=== PATIENT | female | born 1940 | race Caucasian/White ===

== ENCOUNTER → 2020-08-10 10:54 | Outpatient (BNVA) | payer MEDICARE, SELFPAY | PROVIDERS: PCP Internal Medicine; Visit Provider Surgery | DX: H60.10 Cellulitis of external ear, unspecified ear (principal) | CPT/HCPCS: 99202 ==

== ENCOUNTER → 2020-08-17 10:22 | Outpatient (BNVA) | payer MEDICARE, SELFPAY | PROVIDERS: PCP Internal Medicine; Visit Provider Surgery | DX: H61.91 Disorder of right external ear, unspecified (principal) | CPT/HCPCS: 99212 ==

== ENCOUNTER 2020-11-10 07:16 | Outpatient (REF) | payer MEDICARE, SELFPAY ==
[2020-11-10 11:42] LABS: Eosinophils Absolute Auto 0.2 X10*3/uL (0.0-0.4); Eosinophils Percent Auto 3.6 % (0-4); Hemoglobin 13.9 g/dl (12.0-16.0); Imm Gran Abs Auto 0.01 X10*3/uL (0.00-0.03); Imm Gran Pct Auto 0.2 % (0.0-0.4); MANUAL DIFF FLAG SCAN; PLT CLUMP 1; SCAN SMEAR FLAG 1
[2020-11-10 11:44] LABS: Basophils Percent Auto 0.9 % (0-2); Hematocrit 43.9 % (37-47); Lymphocytes Absolute Auto 1.1 X10*3/uL (1.2-4.9); Lymphocytes Percent Auto 22.9 % (20-40); Mean Corpuscular HGB Conc 31.7 g/dl (31.0-35.0); Mean Corpuscular Hemoglobin 30.6 pg (27.0-33.0); Mean Corpuscular Volume 96.7 fL (80-98); Mean Platelet Volume 12.5 fL (9.4-12.3); Monocytes Absolute Auto 0.5 X10*3/uL (0.1-1.2); Monocytes Percent Auto 10.7 % (2-11); Neutrophils Absolute Auto 2.9 X10*3/uL (2.0-8.3); Neutrophils Percent Auto 61.7 % (45-73); Platelet Count 224 X10*3/uL (160-400); Red Blood Count 4.54 X10*6/uL (4.20-5.50); Red Cell Distribution Width 13.6 % (11.0-16.0); White Blood Count 4.7 X10*3/uL (4.8-10.8)
[2020-11-10 12:09] LABS: Cholesterol 156 mg/dL; Glucose Fasting 94 mg/dL (60-99); HDL Cholesterol 66 mg/dL; LDL Cholesterol Calculated 78 mg/dl; Triglycerides 61 mg/dL
[2020-11-10 12:31] LABS: Thyroid Stimulating Hormone 5.46 uIU/mL (0.32-4.0); Vitamin D 25-OH Total 31.9 ng/mL (>30)
== END 2020-11-10 07:17 | disposition home or self-care (01) ==
LOC: HO.HMGCLDS 07:16
PROVIDERS: PCP Internal Medicine; Visit Provider Internal Medicine
DX: I48.0 Paroxysmal atrial fibrillation (principal); I10 Essential (primary) hypertension; E78.00 Pure hypercholesterolemia, unspecified; E03.9 Hypothyroidism, unspecified; F32.9 Major depressive disorder, single episode, unspecified; G47.33 Obstructive sleep apnea (adult) (pediatric); E66.09 Other obesity due to excess calories
CPT/HCPCS: 36415; 80061; 82306; 82947; 84443; 85025

== ENCOUNTER 2021-03-04 10:17 | Outpatient (REF) | payer MEDICARE, SELFPAY ==
[2021-03-04 11:57] LABS: MANUAL DIFF FLAG NO
[2021-03-04 12:07] LABS: Basophils Percent Auto 0.2 % (0-2); Eosinophils Absolute Auto 0.2 X10*3/uL (0.0-0.4); Eosinophils Percent Auto 1.7 % (0-4); Hematocrit 44.5 % (37.0-47.0); Hemoglobin 13.9 g/dl (12.0-16.0); Imm Gran Abs Auto 0.03 X10*3/uL (0.00-0.03); Imm Gran Pct Auto 0.3 % (0.0-0.4); Lymphocytes Absolute Auto 1.1 X10*3/uL (1.2-4.9); Lymphocytes Percent Auto 11.2 % (20-40); Mean Corpuscular HGB Conc 31.2 g/dl (31.0-35.0); Mean Corpuscular Hemoglobin 30.6 pg (27.0-33.0); Mean Platelet Volume 12.3 fL (9.4-12.3); Monocytes Absolute Auto 0.9 X10*3/uL (0.1-1.2); Monocytes Percent Auto 9.6 % (2-11); Neutrophils Absolute Auto 7.4 x10*3/uL (2.0-8.3); Platelet Count 209 X10*3/uL (160-400); Red Blood Count 4.54 X10*6/uL (4.20-5.50); Red Cell Distribution Width 13.6 % (11.0-16.0); White Blood Count 9.6 X10*3/uL (4.8-10.8)
[2021-03-04 12:19] LABS: Alanine Aminotransferase 18 U/L (0-31); Albumin Level 3.8 g/dL (3.5-5.0); Alkaline Phosphatase 80 U/L (39-117); Anion Gap 13 (12-20); Aspartate Amino Transferase 19 U/L (5-31); Bilirubin Total 0.6 mg/dL (0.0-1.0); Blood Urea Nitrogen 18 mg/dL (9-16); Calcium 8.8 mg/dL (8.4-10.2); Carbon Dioxide 28 mmol/L (22-29); Chloride 105 mmol/L (96-108); Estimated Glomerular Filt Rate 58; Glucose Random 84 mg/dL (60-115); Potassium 4.5 mmol/L (3.3-5.1); Sodium 141 mmol/L (135-145); Total Protein 6.3 g/dL (6.5-8.0)
[2021-03-04 12:44] LABS: Free T4 (Free Thyroxine) 1.36 ng/dL (0.71-1.85)
[2021-03-04 13:14] LABS: Thyroid Stimulating Hormone 2.24 uIU/mL (0.32-4.0)
== END 2021-03-04 10:18 | disposition home or self-care (01) ==
LOC: HO.HMGCLDS 10:17
PROVIDERS: PCP Internal Medicine; Visit Provider Internal Medicine
DX: I48.0 Paroxysmal atrial fibrillation (principal); E66.09 Other obesity due to excess calories; E03.9 Hypothyroidism, unspecified; F32.9 Major depressive disorder, single episode, unspecified; E78.00 Pure hypercholesterolemia, unspecified; I10 Essential (primary) hypertension; Z98.890 Other specified postprocedural states
CPT/HCPCS: 36415; 80053; 84439; 84443; 85025

== ENCOUNTER 2021-11-13 07:41 | Outpatient (REF) | payer MEDICARE, SELFPAY ==
[2021-11-13 11:09] LABS: MANUAL DIFF FLAG NO
[2021-11-13 11:28] LABS: Basophils Absolute Auto 0.1 X10*3/uL (0.0-0.2); Eosinophils Absolute Auto 0.1 X10*3/uL (0.0-0.4); Eosinophils Percent Auto 2.2 % (0-4); Hematocrit 45.3 % (37.0-47.0); Hemoglobin 14.3 g/dl (12.0-16.0); Imm Gran Abs Auto 0.01 X10*3/uL (0.00-0.03); Imm Gran Pct Auto 0.2 % (0.0-0.4); Lymphocytes Absolute Auto 1.1 X10*3/uL (1.2-4.9); Lymphocytes Percent Auto 22.2 % (20-40); Mean Corpuscular HGB Conc 31.6 g/dl (31.0-35.0); Mean Corpuscular Hemoglobin 30.2 pg (27.0-33.0); Mean Corpuscular Volume 95.8 fL (80.0-98.0); Mean Platelet Volume 12.5 fL (9.4-12.3); Monocytes Absolute Auto 0.5 X10*3/uL (0.1-1.2); Monocytes Percent Auto 9.8 % (2-11); Neutrophils Absolute Auto 3.2 x10*3/uL (2.0-8.3); Neutrophils Percent Auto 64.6 % (45-73); Platelet Count 238 X10*3/uL (160-400); Red Blood Count 4.73 X10*6/uL (4.20-5.50); White Blood Count 4.9 X10*3/uL (4.8-10.8)
[2021-11-13 11:46] LABS: Alanine Aminotransferase 16 U/L (0-31); Alkaline Phosphatase 82 U/L (39-117); Anion Gap 14 (12-20); Aspartate Amino Transferase 21 U/L (5-31); Bilirubin Total 0.7 mg/dL (0.0-1.0); Blood Urea Nitrogen 17 mg/dL (9-16); Carbon Dioxide 29 mmol/L (22-29); Chloride 105 mmol/L (96-108); Cholesterol 145 mg/dL; Estimated Glomerular Filt Rate 58; Glucose Fasting 86 mg/dL (60-99); HDL Cholesterol 55 mg/dL; LDL Cholesterol Calculated 75 mg/dl; Potassium 4.3 mmol/L (3.3-5.1); Sodium 144 mmol/L (135-145); Total Protein 6.6 g/dL (6.5-8.0); Triglycerides 77 mg/dL
[2021-11-13 12:09] LABS: Thyroid Stimulating Hormone 5.62 uIU/mL (0.32-4.0); Vitamin D 25-OH Total 38.8 ng/mL (>30)
== END 2021-11-13 07:42 | disposition home or self-care (01) ==
LOC: HO.HMGCLDS 07:41
PROVIDERS: PCP Internal Medicine; Visit Provider Internal Medicine
DX: I48.0 Paroxysmal atrial fibrillation (principal); E78.00 Pure hypercholesterolemia, unspecified; E03.9 Hypothyroidism, unspecified; F32.9 Major depressive disorder, single episode, unspecified; G47.33 Obstructive sleep apnea (adult) (pediatric); E66.09 Other obesity due to excess calories
CPT/HCPCS: 36415; 80053; 80061; 82306; 84443; 85025

== ENCOUNTER 2022-10-23 08:37 | Outpatient (REF) | payer MEDICARE, SELFPAY ==
[2022-10-23 11:40] LABS: MANUAL DIFF FLAG NO
[2022-10-23 11:42] LABS: Basophils Absolute Auto 0.1 X10*3/uL (0.0-0.2); Eosinophils Absolute Auto 0.1 X10*3/uL (0.0-0.4); Eosinophils Percent Auto 2.4 % (0-4); Hematocrit 50.9 % (37.0-47.0); Hemoglobin 16.2 g/dl (12.0-16.0); Imm Gran Abs Auto 0.02 X10*3/uL (0.00-0.03); Imm Gran Pct Auto 0.4 % (0.0-0.4); Lymphocytes Absolute Auto 1.3 X10*3/uL (1.2-4.9); Lymphocytes Percent Auto 25.2 % (20-40); Mean Corpuscular HGB Conc 31.8 g/dl (31.0-35.0); Mean Corpuscular Hemoglobin 30.2 pg (27.0-33.0); Mean Corpuscular Volume 94.8 fL (80.0-98.0); Mean Platelet Volume 12.1 fL (9.4-12.3); Monocytes Absolute Auto 0.5 X10*3/uL (0.1-1.2); Monocytes Percent Auto 10.7 % (2-11); Neutrophils Percent Auto 60.3 % (45-73); Platelet Count 261 X10*3/uL (160-400); Red Blood Count 5.37 X10*6/uL (4.20-5.50); Red Cell Distribution Width 13.4 % (11.0-16.0)
[2022-10-23 12:17] LABS: Alanine Aminotransferase 13 U/L (0-31); Alkaline Phosphatase 78 U/L (39-117); Anion Gap 13 (12-20); Aspartate Amino Transferase 23 U/L (5-31); Bilirubin Total 0.9 mg/dL (0.0-1.0); Blood Urea Nitrogen 16 mg/dL (9-16); Calcium 9.5 mg/dL (8.4-10.2); Carbon Dioxide 26 mmol/L (22-29); Chloride 107 mmol/L (96-108); Cholesterol 141 mg/dL (<200); Estimated Glomerular Filt Rate > 60; Glucose Fasting 94 mg/dL (60-99); HDL Cholesterol 52 mg/dL (>40); LDL Cholesterol Calculated 72 mg/dL (<100); Potassium 4.3 mmol/L (3.3-5.1); Sodium 142 mmol/L (135-145); Triglycerides 89 mg/dL (<150)
[2022-10-23 12:36] LABS: Thyroid Stimulating Hormone 2.91 uIU/mL (0.32-4.0)
== END 2022-10-23 08:38 | disposition home or self-care (01) ==
LOC: HO.HMGCLDS 08:37
PROVIDERS: PCP Internal Medicine; Visit Provider Internal Medicine
DX: E03.9 Hypothyroidism, unspecified (principal); E78.00 Pure hypercholesterolemia, unspecified; I10 Essential (primary) hypertension; I48.0 Paroxysmal atrial fibrillation; E66.09 Other obesity due to excess calories; G47.33 Obstructive sleep apnea (adult) (pediatric)
CPT/HCPCS: 36415; 80053; 80061; 84443; 85025

== ENCOUNTER 2023-02-06 11:00 | Outpatient (REF) | payer MEDICARE, SELFPAY ==
[2023-02-06 15:31] LABS: Adenovirus F 40/41 Not Detected (Not Detect.); Astrovirus Not Detected (Not Detect.); Campylobacter Not Detected (Not Detect.); Cryptosporidium Not Detected (Not Detect.); Cyclospora cayetanensis Not Detected (Not Detect.); E. coli EAEC Not Detected (Not Detect.); E. coli EPEC Not Detected (Not Detect.); E. coli ETEC Not Detected (Not Detect.); E. coli STEC Not Detected (Not Detect.); Entamoeba histolytica Not Detected (Not Detect.); Giardia lamblia Not Detected (Not Detect.); Norovirus GI/GII Not Detected (Not Detect.); Plesiomonas shigelloides Not Detected (Not Detect.); Rotavirus A Not Detected (Not Detect.); Salmonella Not Detected (Not Detect.); Sapovirus Not Detected (Not Detect.); Shigella sp./EIEC Not Detected (Not Detect.); Vibrio Not Detected (Not Detect.); Vibrio Cholerae Not Detected (Not Detect.); Yersinia enterocolitica Not Detected (Not Detect.)
[2023-02-06 15:38] LABS: CDiff Gene PCR NEGATIVE (Negative)
== END 2023-02-06 11:01 | disposition home or self-care (01) ==
LOC: HO.HMGCLNP 11:00
PROVIDERS: PCP Internal Medicine; Visit Provider Internal Medicine
DX: R19.7 Diarrhea, unspecified (principal)
CPT/HCPCS: 87493; 87507

== ENCOUNTER 2023-05-30 07:47 | Outpatient (REF) | payer MEDICARE, SELFPAY ==
[2023-05-30 11:24] LABS: Basophils Percent Auto 0.8 % (0-2); Eosinophils Absolute Auto 0.2 X10*3/uL (0.0-0.4); Hematocrit 47.9 % (37.0-47.0); Hemoglobin 15.2 g/dl (12.0-16.0); Imm Gran Abs Auto 0.01 X10*3/uL (0.00-0.03); Imm Gran Pct Auto 0.2 % (0.0-0.4); Lymphocytes Absolute Auto 1.3 X10*3/uL (1.2-4.9); Lymphocytes Percent Auto 25.5 % (20-40); MANUAL DIFF FLAG NO; Mean Corpuscular HGB Conc 31.7 g/dl (31.0-35.0); Mean Corpuscular Hemoglobin 30.1 pg (27.0-33.0); Mean Corpuscular Volume 94.9 fL (80.0-98.0); Mean Platelet Volume 11.8 fL (9.4-12.3); Monocytes Absolute Auto 0.6 X10*3/uL (0.1-1.2); Monocytes Percent Auto 11.7 % (2-11); Neutrophils Absolute Auto 2.9 x10*3/uL (2.0-8.3); Neutrophils Percent Auto 57.8 % (45-73); Platelet Count 230 X10*3/uL (160-400); Red Blood Count 5.05 X10*6/uL (4.20-5.50); Red Cell Distribution Width 13.8 % (11.0-16.0); White Blood Count 5.1 X10*3/uL (4.8-10.8)
[2023-05-30 11:41] LABS: Alanine Aminotransferase 12 U/L (0-31); Albumin Level 3.8 g/dL (3.5-5.0); Alkaline Phosphatase 83 U/L (39-117); Anion Gap 13 (12-20); Aspartate Amino Transferase 20 U/L (5-31); Bilirubin Total 0.7 mg/dL (0.0-1.0); Blood Urea Nitrogen 19 mg/dL (9-16); Calcium 9.1 mg/dL (8.4-10.2); Carbon Dioxide 29 mmol/L (22-29); Chloride 104 mmol/L (96-108); Cholesterol 144 mg/dL (<200); Estimated Glomerular Filt Rate > 60; Glucose Fasting 98 mg/dL (60-99); HDL Cholesterol 50 mg/dL (>40); LDL Cholesterol Calculated 77 mg/dL (<100); Potassium 4.2 mmol/L (3.3-5.1); Sodium 142 mmol/L (135-145); Total Protein 6.6 g/dL (6.5-8.0); Triglycerides 86 mg/dL (<150)
[2023-05-30 11:58] LABS: Thyroid Stimulating Hormone 1.34 uIU/mL (0.32-4.0)
== END 2023-05-30 07:48 | disposition home or self-care (01) ==
LOC: HO.HMGCLDS 07:47
PROVIDERS: PCP Internal Medicine; Visit Provider Internal Medicine
DX: E78.00 Pure hypercholesterolemia, unspecified (principal); E03.9 Hypothyroidism, unspecified; F32.9 Major depressive disorder, single episode, unspecified; E66.09 Other obesity due to excess calories; I48.0 Paroxysmal atrial fibrillation
CPT/HCPCS: 36415; 80053; 80061; 84443; 85025

== ENCOUNTER 2024-01-26 15:38 | Emergency (ER) | payer MEDICARE, SELFPAY ==
--- NOTE | ~2024-01-26 | CT_ITS ---
EXAMINATION: CT HEAD WITHOUT CONTRAST CT CERVICAL SPINE WITHOUT CONTRAST CT LUMBAR SPINE WITHOUT CONTRAST CLINICAL INFORMATION: Trauma. COMPARISON: None available. TECHNIQUE: Contiguous axial imaging was performed from the skull base to vertex without intravenous administration of contrast. Contiguous axial imaging was performed from the upper chest through the skull base without intravenous administration of contrast. Multidetector helical imaging of the thoracic and lumbar spine was obtained without intravenous contrast. Coronal and sagittal reformats were obtained at the acquisition workstation. This CT examination was performed using dose optimization techniques as appropriate, variously including the following: *Automated exposure control. *Adjustment of mA and/or kV according to patient size (this includes techniques or standardized protocols for targeted exams where dose is matched to indication/reason for exam; i.e. extremities or head). *Use of iterative reconstruction technique. DLP: 1511 mGy-cm FINDINGS: Head: There is no evidence of acute intracranial hemorrhage or edematous territorial infarction. Lane-white matter differentiation is preserved. Scattered and partially confluent hypoattenuation in the periventricular and deep white matter are consistent with moderate microangiopathy. Proportional prominence of the ventricles and sulcal spaces without evidence of obstructive hydrocephalus. No abnormal mass effect or midline shift. No extra-axial fluid collections. Calcific atherosclerotic disease of the intracranial internal carotid and vertebral arteries. No hyperdense vessel sign. No acute soft tissue or osseous abnormalities. Mild mucosal thickening of the paranasal sinuses. The mastoid air cells and middle ear cavities are clear. Moderate left and mild right degenerative arthropathy of the temporomandibular joints. Bilateral lens extractions. Cervical Spine: The atlantooccipital and atlantoaxial articulations remain well aligned. Moderate degenerative arthropathy of the atlantodental articulation. Straightening of the normal cervical lordosis. Mild degenerative stepwise anterolistheses of C2-C5. Otherwise, there is anatomic alignment of the vertebral bodies and posterior elements. No evidence of acute fracture or subluxation. The vertebral body heights are maintained. Advanced degenerative disc disease from C4-C7. Moderate degenerative disc disease at all additional levels. Facet and uncovertebral joint arthropathy leads to osseous encroachment on the neural foramina from C2-C7. There is no prevertebral soft tissue swelling. The thyroid gland and remaining cervical soft tissues are within normal limits. The lung apices demonstrate no abnormalities. Lumbar Spine: Minimal right convex curvature of the lumbar spine. No evidence of acute fracture or traumatic subluxation. The vertebral body heights are maintained. Advanced degenerative disc disease from L2-S1. Moderate degenerative disc disease at L1-L2. No suspicious lytic or sclerotic osseous lesions. No significant abnormalities of the paraspinal musculature. Limited evaluation of the intra-abdominal structures without significant abnormalities. The abdominal aorta is of normal contour and caliber with moderate calcific atherosclerotic disease. AXIAL SPINAL LEVELS: L1-L2: Moderate diffuse disc bulge with posterior osseous ridging. There is moderate bilateral facet joint arthropathy. There is moderate bilateral neural foraminal stenosis. There appears to be stenosis of the right subarticular zone with mild to moderate spinal canal stenosis centrally. L2-L3: Moderate diffuse disc bulge with posterior osseous ridging. There is moderate to severe bilateral facet joint arthropathy. There is moderate to severe left and moderate right neural foraminal stenosis. There appears to be moderate to severe spinal canal stenosis. L3-L4: Moderate diffuse disc bulge with posterior osseous ridging. There is moderate to severe bilateral facet joint arthropathy. There is moderate bilateral neural foraminal stenosis. There appears to be moderate to severe spinal canal stenosis. L4-L5: Moderate diffuse disc bulge with posterior osseous ridging. There is severe bilateral facet joint arthropathy. There is moderate to severe bilateral neural foraminal stenosis. There appears to be moderate to severe spinal canal stenosis. L5-S1: Mild diffuse disc bulge with posterior osseous ridging. There is moderate bilateral facet joint arthropathy. There is moderate to severe right and mild left neural foraminal stenosis. There is no demonstrated spinal canal stenosis. CT/CT cervical spine wo IV con IMPRESSION: 1. No evidence of acute intracranial hemorrhage or edematous territorial infarction. Moderate underlying microangiopathy and generalized cerebral volume loss. 2. No evidence of acute fracture or traumatic subluxation of the cervical spine. Moderate to advanced multilevel degenerative spondyloarthropathy of the cervical spine as described in detail above. 3. No evidence of acute fracture or traumatic subluxation of the lumbar spine. 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 Most notably on this limited exam without intrathecal contrast, there appears to be moderate to severe spinal canal stenoses from L2-L5. Moderate to severe neural foraminal stenoses from L1-S1. Electronically signed by: Pro Nicholas DO 01/26/2024 08:44 PM SUZI COCHRAN
[2024-01-26 16:25] VITALS: BP 105/85; PULSE 78; RESP 16; TEMP 36.9; O2SAT 98; BMI 33.7
--- NOTE | 2024-01-26 16:32 | ED_ITS ---
HPI - General Adult General Chief complaint: Headache Stated complaint: Fall T-1, Flank pain sent by pcp Time Seen by Provider: 01/26/24 19:40 Source: patient, RN notes reviewed and old records reviewed Mode of arrival: ambulatory Limitations: no limitations History of Present Illness ED Provider: Thanh HPI narrative: 83-year-old female presents for evaluation of lower back pain. Patient reports that she had a nonsyncopal fall yesterday. She reports that she was carrying things down the stairs. She reports that she missed the last step of the stairs and fell onto her buttocks. She hit her head against the wall and ?dented the drywall. The patient reports that she had no symptoms initially. She started to develop lower back pain last night while she was sleeping and ?had a restless night. ? Today she called her primary doctor and was told to come to the ER for evaluation. She reports severe lower back pain that is worse when she tries to move or bend She reports that she always has urinary incontinence but has had worsening incontinence since her fall yesterday She denies any numbness, tingling or weakness to her legs Related Data Home Medications ?Medication ?Instructions ?Recorded ?Confirmed amiodarone 200 mg tablet 200 mg PO DAILY 07/31/20 08/10/20 amoxicillin 500 mg capsule 2,000 mg PO ONCE 07/31/20 08/10/20 apixaban 5 mg tablet 5 mg PO BID 07/31/20 08/10/20 atorvastatin 10 mg tablet 10 mg PO DAILY 07/31/20 08/10/20 levothyroxine 100 mcg tablet 100 mcg PO DAILY 07/31/20 08/10/20 losartan 50 mg tablet 50 mg PO DAILY 07/31/20 08/10/20 metoprolol succinate 50 mg 50 mg PO DAILY 07/31/20 08/10/20 tablet,extended release 24 hr sertraline 50 mg tablet 50 mg PO DAILY 07/31/20 08/10/20 Previous Rx's ?Medication ?Instructions ?Recorded cephalexin 500 mg capsule 500 mg PO QID 7 days #28 caps 07/31/20 mupirocin calcium 2 % topical cream 1 appl topical BID Ear infection 08/10/20 #15 grams Allergies Allergy/AdvReac Type Severity Reaction Status Date / Time aspirin [ASPIRIN] Allergy Intermediate bruising Verified 01/26/24 16:28 amoxicillin [Amoxicillin] Allergy Unknown DIARRHEA/NA Unverified 01/26/24 16:28 USES metoprolol [Toprol XL] Allergy Unknown headaches Verified 01/26/24 16:28 meloxicam [From MOBIC] AdvReac Intermediate DIARRHEA Unverified 01/26/24 16:28 Review of Systems 2 Constitutional: Constitutional: Denies body ache(s), Denies chills, Denies fever(s) and Denies headache(s) Eyes: Eyes: Denies blurry vision ENT: Denies vertigo, Denies dizziness and Denies headache(s) Cardiovascular: Cardiovascular: Denies chest pain and Denies dyspnea Respiratory: Respiratory: Denies cough and Denies dyspnea Gastrointestinal: Gastrointestinal: Denies abdominal pain, Denies nausea and Denies vomiting Musculoskeletal: Musculoskeletal: Reports back pain Integumentary/Breasts: Skin/Breast: Denies rash Neurologic: Denies vertigo, Denies dizziness and Denies headache(s) Psychiatric: Psychiatric: Denies anxiety PMFSH Past Medical History Medical History Atrial fibrillation Colitis Depression Essential hypertension GERD (gastroesophageal reflux disease) Hypercholesterolemia Hypothyroidism Irritable bowel syndrome Obstructive sleep apnea Osteoarthritis Surgical History History of cardiac pacemaker History of cataract surgery History of hysterectomy History of total knee replacement (TKR) Family History Family History Mother Breast cancer Sister Ovarian cancer Social History Social History Alcohol intake: never Patient Tobacco Use Status: Never used Tobacco Smoked in Last 30 Days: Yes Use of substances other than those prescribed or required for medical reasons: No Advance Directives: No Advance Directives Information Provided: No Do you have a plan to hurt others: No Plan Physical Exam ED Vital Signs: Vital Signs - 24 hr 01/26/24 16:25 01/26/24 19:47 Temperature 98.4 F 98.2 F Pulse Rate 78 96 Respiratory Rate 16 20 Blood Pressure 105/85 134/79 Pulse Oximetry 98 97 Oxygen Delivery Method Room Air Room Air BMI result Body Mass Index 33.7 Const General: healthy appearing, comfortable, no acute distress, alert and awake Nutritional Appearance: well nourished Orientation/consciousness: patient oriented x3 HENMT Head: Yes normocephalic and Yes atraumatic Eyes Eyelids: Yes eyelids normal Conjunctivae: conjunctivae normal Sclerae: sclerae normal Corneas: corneas normal Pupils: Equal, round and reactive pupils present EOM: EOMs intact bilaterally Neck Neck: Yes full ROM Resp Effort & Inspection: normal respiratory effort, able to speak in complete sentences and not labored GI Inspection: No distended Palpation (GI): Soft to palpation, not firm, nontender, no guarding and not rigid Back/Spine/Pelvis Other: There is no significant tenderness to thoracic, lumbar spine. No step-offs or deformities. the patient has pain elicited when flexing at the waist. Skin General skin exam: elasticity normal Neuro General: patient oriented x3 Cranial nerves: Yes Equal, round and reactive pupils present and Yes Bilaterally intact EOM present Cognition (Neuro): normal cognition Extrem Other: Moving all extremities well without any obvious deformities Course Course Course Narrative: This is a rapid medical exam performed by Ann Marie Armijo PA-C. Patient is an 83-year-old female with a history of AFib on Eliquis, hypertension, hyperlipidemia, urinary incontinence and hypothyroidism presents after fall that occurred yesterday. Patient states she was walking down a flight of stairs, she missed the last step, she subsequently landed backwards landing on her bottom, she also struck her head against the wall. There was no loss consciousness. Patient has been ambulatory since the fall. No urinary retention, bowel incontinence, weakness of lower extremities or paresthesia. Patient's primary complaint is for lumbar back pain. On exam there was no deformity, there was no midline tenderness of the spine, she has pain within the lumbar paraspinous distribution. Given she is anticoagulated and her age, I am obtaining imaging of her lumbar spine head and neck. We will screen basic labs in the event that she sustained an acute injury and requires intervention. The patient is hemodynamically stable, ambulatory at her baseline, is able to return to the waiting room pending her full assessment. Reevaluation(s) Reevaluation #1: Discussed patient's CT results with her. She has not yet given us a urinalysis. The patient would not like to wait in the emergency room any longer. She will follow up with her PCP regarding that. No evidence of acute traumatic injuries. The patient will be discharged with symptomatic care only. She does not want to be started on any medications until she speaks with her own primary doctor Time: 21:24 Medications Administered Discontinued Medications Generic Name Dose Route Start Last Admin Trade Name Gurmeet PRN Reason Stop Dose Admin Acetaminophen 650 mg 01/26/24 20:26 01/26/24 21:04 Acetaminophen 325 Mg Tablet PO 01/26/24 20:27 650 mg ONCE ONE Administration Medical Decision Making Medical Decision Making [facility] Narrative: 83-year-old female presents for evaluation of back pain after a fall. She denies any dizziness, lightheadedness prior to the fall. She had labs ordered that show no leukocytosis or anemia. Chemistries are without any significant abnormalities. She had a CT scan of the brain, cervical spine and lumbar spine ordered in triage that are still pending. The patient has no neuro deficits enema suspicion for cauda equina syndrome as she has a reassuring neurologic exam. The patient did mentioned urinary incontinence but she has a baseline Differential Diagnosis Differential Diagnoses: The differential diagnosis associated with the presentation includes Compression fracture Burst fracture Radiculopathy Sciatica Muscle strain Contusion Lab Data [facility] Lab Attestation statement: I reviewed the patient's lab results. 01/26/24 17:27 01/26/24 17:27 Labs: Lab Results 01/26/24 Range/Units 17:27 WBC 7.5 (4.8-10.8) X10*3/uL RBC 4.77 (4.20-5.50) X10*6/uL Hgb 14.8 (12.0-16.0) g/dl Hct 46.1 (37.0-47.0) % MCV 96.6 (80.0-98.0) fL MCH 31.0 (27.0-33.0) pg MCHC 32.1 (31.0-35.0) g/dl RDW 13.2 (11.0-16.0) % Plt Count 210 (160-400) X10*3/uL MPV 11.0 (9.4-12.3) fL Immature Gran % (Auto) Cancelled Neut % (Auto) Cancelled Lymph % (Auto) Cancelled Alfalfa % (Auto) Cancelled Eos % (Auto) Cancelled Baso % (Auto) Cancelled Lymph # (Auto) Cancelled Alfalfa # (Auto) Cancelled Eos # (Auto) Cancelled Baso # (Auto) Cancelled Abs Immat Gran (auto) Cancelled Absolute Neuts (auto) Cancelled Absolute Nucleated RBC 0.000 (0.0-0.012) X10*3/uL Nucleated RBC % (auto) 0.0 (0.0-0.2) /100WBC Neutrophils % (Manual) 78 H (45-73) % Band Neutrophils % 0 L (3-5) % Lymphocytes % (Manual) 12 L (20-40) % Atypical Lymphs % (Man) 1 (0-6) % Monocytes % (Manual) 5 (2-11) % Eosinophils % (Manual) 2 (0-4) % Basophils % (Manual) 2 (0-2) % Abs Neuts (Manual) 5.9 (2.0-8.3) X10*3/uL Lymphocytes # (Manual) 0.9 L (1.2-4.9) X10*3/uL Atyp Lymphs # (Manual) 0.1 x10*3/uL Monocytes # (Manual) 0.4 (0.1-1.2) X10*3/uL Eosinophils # (Manual) 0.2 (0.0-0.4) X10*3/uL Basophils # (Manual) 0.2 (0.0-0.2) X10*3/uL Toxic Vacuolation PRESENT Platelet Estimate NORMAL (NORMAL) Plt Morphology Comment NORMAL RBC Morphology NORMAL Sodium 142 (135-145) mmol/L Potassium 4.4 (3.3-5.1) mmol/L Chloride 107 (96-108) mmol/L Carbon Dioxide 28 (22-29) mmol/L Anion Gap 11 L (12-20) BUN 16 (9-16) mg/dL Creatinine 0.84 (0.5-1.4) mg/dL Estim Creat Clear Calc 50.9 Estimated GFR > 60 Random Glucose 97 (60-115) mg/dL Calcium 9.0 (8.4-10.2) mg/dL Magnesium 2.2 (1.6-2.6) mg/dL Total Bilirubin 0.8 (0.0-1.0) mg/dL AST 28 (5-31) U/L ALT 19 (0-31) U/L Alkaline Phosphatase 89 (39-117) U/L Total Protein 6.8 (6.5-8.0) g/dL Albumin 4.0 (3.5-5.0) g/dL Radiology Impression Discussion of test interpretation with radiology: I have reviewed the radiologist's reading. Radiologist Impression: FINDINGS: Head: There is no evidence of acute intracranial hemorrhage or edematous territorial infarction. Lane-white matter differentiation is preserved. Scattered and partially confluent hypoattenuation in the periventricular and deep white matter are consistent with moderate microangiopathy. Proportional prominence of the ventricles and sulcal spaces without evidence of obstructive hydrocephalus. No abnormal mass effect or midline shift. No extra-axial fluid collections. Calcific atherosclerotic disease of the intracranial internal carotid and vertebral arteries. No hyperdense vessel sign. No acute soft tissue or osseous abnormalities. Mild mucosal thickening of the paranasal sinuses. The mastoid air cells and middle ear cavities are clear. Moderate left and mild right degenerative arthropathy of the temporomandibular joints. Bilateral lens extractions. Cervical Spine: The atlantooccipital and atlantoaxial articulations remain well aligned. Moderate degenerative arthropathy of the atlantodental articulation. Straightening of the normal cervical lordosis. Mild degenerative stepwise anterolistheses of C2-C5. Otherwise, there is anatomic alignment of the vertebral bodies and posterior elements. No evidence of acute fracture or subluxation. The vertebral body heights are maintained. Advanced degenerative disc disease from C4-C7. Moderate degenerative disc disease at all additional levels. Facet and uncovertebral joint arthropathy leads to osseous encroachment on the neural foramina from C2-C7. There is no prevertebral soft tissue swelling. The thyroid gland and remaining cervical soft tissues are within normal limits. The lung apices demonstrate no abnormalities. Lumbar Spine: Minimal right convex curvature of the lumbar spine. No evidence of acute fracture or traumatic subluxation. The vertebral body heights are maintained. Advanced degenerative disc disease from L2-S1. Moderate degenerative disc disease at L1-L2. No suspicious lytic or sclerotic osseous lesions. No significant abnormalities of the paraspinal musculature. Limited evaluation of the intra-abdominal structures without significant abnormalities. The abdominal aorta is of normal contour and caliber with moderate calcific atherosclerotic disease. AXIAL SPINAL LEVELS: L1-L2: Moderate diffuse disc bulge with posterior osseous ridging. There is moderate bilateral facet joint arthropathy. There is moderate bilateral neural foraminal stenosis. There appears to be stenosis of the right subarticular zone with mild to moderate spinal canal stenosis centrally. L2-L3: Moderate diffuse disc bulge with posterior osseous ridging. There is moderate to severe bilateral facet joint arthropathy. There is moderate to severe left and moderate right neural foraminal stenosis. There appears to be moderate to severe spinal canal stenosis. L3-L4: Moderate diffuse disc bulge with posterior osseous ridging. There is moderate to severe bilateral facet joint arthropathy. There is moderate bilateral neural foraminal stenosis. There appears to be moderate to severe spinal canal stenosis. L4-L5: Moderate diffuse disc bulge with posterior osseous ridging. There is severe bilateral facet joint arthropathy. There is moderate to severe bilateral neural foraminal stenosis. There appears to be moderate to severe spinal canal stenosis. L5-S1: Mild diffuse disc bulge with posterior osseous ridging. There is moderate bilateral facet joint arthropathy. There is moderate to severe right and mild left neural foraminal stenosis. There is no demonstrated spinal canal stenosis. CT/CT lumbar spine wo IV con IMPRESSION: 1. No evidence of acute intracranial hemorrhage or edematous territorial infarction. Moderate underlying microangiopathy and generalized cerebral volume loss. 2. No evidence of acute fracture or traumatic subluxation of the cervical spine. Moderate to advanced multilevel degenerative spondyloarthropathy of the cervical spine as described in detail above. 3. No evidence of acute fracture or traumatic subluxation of the lumbar spine. 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 Most notably on this limited exam without intrathecal contrast, there appears to be moderate to severe spinal canal stenoses from L2-L5. Moderate to severe neural foraminal stenoses from L1-S1. Electronically signed by: Pro Nicholas DO 01/26/2024 08:44 PM [facility] Discharge Plan Discharge Clinical Impression: Back pain Patient Disposition: Home, Self-Care Instructions: Back Pain (ED) Additional Instructions: Your CT scans did not show any evidence of traumatic injuries. You have severe arthritis in your lower back/lumbar spine Follow-up with your primary doctor. You may continue to use Tylenol as needed for pain FINDINGS: Head: There is no evidence of acute intracranial hemorrhage or edematous territorial infarction. Lane-white matter differentiation is preserved. Scattered and partially confluent hypoattenuation in the periventricular and deep white matter are consistent with moderate microangiopathy. Proportional prominence of the ventricles and sulcal spaces without evidence of obstructive hydrocephalus. No abnormal mass effect or midline shift. No extra-axial fluid collections. Calcific atherosclerotic disease of the intracranial internal carotid and vertebral arteries. No hyperdense vessel sign. No acute soft tissue or osseous abnormalities. Mild mucosal thickening of the paranasal sinuses. The mastoid air cells and middle ear cavities are clear. Moderate left and mild right degenerative arthropathy of the temporomandibular joints. Bilateral lens extractions. Cervical Spine: The atlantooccipital and atlantoaxial articulations remain well aligned. Moderate degenerative arthropathy of the atlantodental articulation. Straightening of the normal cervical lordosis. Mild degenerative stepwise anterolistheses of C2-C5. Otherwise, there is anatomic alignment of the vertebral bodies and posterior elements. No evidence of acute fracture or subluxation. The vertebral body heights are maintained. Advanced degenerative disc disease from C4-C7. Moderate degenerative disc disease at all additional levels. Facet and uncovertebral joint arthropathy leads to osseous encroachment on the neural foramina from C2-C7. There is no prevertebral soft tissue swelling. The thyroid gland and remaining cervical soft tissues are within normal limits. The lung apices demonstrate no abnormalities. Lumbar Spine: Minimal right convex curvature of the lumbar spine. No evidence of acute fracture or traumatic subluxation. The vertebral body heights are maintained. Advanced degenerative disc disease from L2-S1. Moderate degenerative disc disease at L1-L2. No suspicious lytic or sclerotic osseous lesions. No significant abnormalities of the paraspinal musculature. Limited evaluation of the intra-abdominal structures without significant abnormalities. The abdominal aorta is of normal contour and caliber with moderate calcific atherosclerotic disease. AXIAL SPINAL LEVELS: L1-L2: Moderate diffuse disc bulge with posterior osseous ridging. There is moderate bilateral facet joint arthropathy. There is moderate bilateral neural foraminal stenosis. There appears to be stenosis of the right subarticular zone with mild to moderate spinal canal stenosis centrally. L2-L3: Moderate diffuse disc bulge with posterior osseous ridging. There is moderate to severe bilateral facet joint arthropathy. There is moderate to severe left and moderate right neural foraminal stenosis. There appears to be moderate to severe spinal canal stenosis. L3-L4: Moderate diffuse disc bulge with posterior osseous ridging. There is moderate to severe bilateral facet joint arthropathy. There is moderate bilateral neural foraminal stenosis. There appears to be moderate to severe spinal canal stenosis. L4-L5: Moderate diffuse disc bulge with posterior osseous ridging. There is severe bilateral facet joint arthropathy. There is moderate to severe bilateral neural foraminal stenosis. There appears to be moderate to severe spinal canal stenosis. L5-S1: Mild diffuse disc bulge with posterior osseous ridging. There is moderate bilateral facet joint arthropathy. There is moderate to severe right and mild left neural foraminal stenosis. There is no demonstrated spinal canal stenosis. CT/CT lumbar spine wo IV con IMPRESSION: 1. No evidence of acute intracranial hemorrhage or edematous territorial infarction. Moderate underlying microangiopathy and generalized cerebral volume loss. 2. No evidence of acute fracture or traumatic subluxation of the cervical spine. Moderate to advanced multilevel degenerative spondyloarthropathy of the cervical spine as described in detail above. 3. No evidence of acute fracture or traumatic subluxation of the lumbar spine. 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 Most notably on this limited exam without intrathecal contrast, there appears to be moderate to severe spinal canal stenoses from L2-L5. Moderate to severe neural foraminal stenoses from L1-S1. Electronically signed by: Pro Nicholas DO 01/26/2024 08:44 PM [facility] Prescriptions: No Action Eliquis 5 mg tablet 5 mg PO BID amoxicillin 500 mg capsule 2,000 mg PO ONCE sertraline 50 mg tablet 50 mg PO DAILY atorvastatin 10 mg tablet 10 mg PO DAILY metoprolol succinate 50 mg tablet extended release 24 hr 50 mg PO DAILY amiodarone 200 mg tablet 200 mg PO DAILY levothyroxine 100 mcg tablet 100 mcg PO DAILY losartan 50 mg tablet 50 mg PO DAILY cephalexin 500 mg capsule 500 mg PO QID 7 Days Qty: 28 0RF mupirocin calcium 2 % cream 1 appl topical BID Qty: 15 1RF Print Language: Spanish
[2024-01-26 17:35] LABS: Hematocrit 46.1 % (37.0-47.0); Hemoglobin 14.8 g/dl (12.0-16.0); Mean Corpuscular HGB Conc 32.1 g/dl (31.0-35.0); Mean Corpuscular Volume 96.6 fL (80.0-98.0); Platelet Count 210 X10*3/uL (160-400); Red Blood Count 4.77 X10*6/uL (4.20-5.50); Red Cell Distribution Width 13.2 % (11.0-16.0)
[2024-01-26 17:37] LABS: WBC ABN SCTR FOR CBC 1
[2024-01-26 18:07] LABS: Alanine Aminotransferase 19 U/L (0-31); Alkaline Phosphatase 89 U/L (39-117); Anion Gap 11 (12-20); Aspartate Amino Transferase 28 U/L (5-31); Bilirubin Total 0.8 mg/dL (0.0-1.0); Blood Urea Nitrogen 16 mg/dL (9-16); Carbon Dioxide 28 mmol/L (22-29); Chloride 107 mmol/L (96-108); Creatinine Clr Calc Pharmacy 50.9; Estimated Glomerular Filt Rate > 60; Glucose Random 97 mg/dL (60-115); Magnesium 2.2 mg/dL (1.6-2.6); Potassium 4.4 mmol/L (3.3-5.1); Sodium 142 mmol/L (135-145); Total Protein 6.8 g/dL (6.5-8.0)
[2024-01-26 18:22] LABS: Atypical Lymphs Percent Manual 1 % (0-6); Basophils Percent Manual 2 % (0-2); Eosinophils Percent Manual 2 % (0-4); Lymphocytes Percent Manual 12 % (20-40); Monocytes Percent Manual 5 % (2-11); Neutrophils Percent Manual 78 % (45-73); Toxic Vacuolation PRESENT
[2024-01-26 18:24] LABS: Band Neutrophils Percent 0 % (3-5); Platelet Estimate NORMAL (NORMAL); Platelet Morphology Comment NORMAL; RBC Morphology NORMAL
[2024-01-26 18:25] LABS: Atypical Lymph Absolute Manual 0.1 x10*3/uL; Basophils Abs Manual 0.2 X10*3/uL (0.0-0.2); Eosinophils Absolute Manual 0.2 X10*3/uL (0.0-0.4); Lymphocytes Absolute Manual 0.9 X10*3/uL (1.2-4.9); Monocytes Absolute Manual 0.4 X10*3/uL (0.1-1.2); Neutrophils Absolute Manual 5.9 X10*3/uL (2.0-8.3); White Blood Count 7.5 X10*3/uL (4.8-10.8)
[2024-01-26 19:47] VITALS: BP 134/79; PULSE 96; RESP 20; TEMP 36.8; O2SAT 97
[2024-01-26] MEDS: Acetaminophen 325 MG TABLET 650 MG PO (21:04)
--- NOTE | 2024-01-26 21:09 | PC.NURSE ---
patient a&ox3, ambulating in room with steady gait, pt c/o [phone] lower back pain, pt requested tylenol which was ordered- pt medicated with tylenol per order, awaiting radiology results, will continue to monitor
[2024-01-26 21:27] VITALS: BP 136/78; PULSE 88; RESP 20; TEMP 36.7; O2SAT 97
[2024-01-26 21:39] VITALS: BP 136/78; PULSE 88; RESP 20; TEMP 36.7; O2SAT 97
== END 2024-01-26 21:39 | disposition home or self-care (01) ==
PROVIDERS: Physician Assistant Medical; Emergency Provider Emergency Medicine Emergency Medical Services; PCP Internal Medicine
DX: S39.92XA Unspecified injury of lower back, initial encounter (principal); S09.90XA Unspecified injury of head, initial encounter; R51.9 Headache, unspecified; M54.2 Cervicalgia; W10.9XXA Fall (on) (from) unspecified stairs and steps, initial encounter; Y93.89 Activity, other specified; Y92.89 Other specified places as the place of occurrence of the external cause; Y99.8 Other external cause status; Z79.899 Other long term (current) drug therapy
CPT/HCPCS: 36415; 70450; 72125; 72131; 80053; 83735; 85007; 85027; 99284

== ENCOUNTER 2024-05-14 08:51 | Outpatient (REF) | payer MEDICARE, SELFPAY ==
[2024-05-14 12:01] LABS: MANUAL DIFF FLAG NO
[2024-05-14 12:08] LABS: Basophils Absolute Auto 0.1 X10*3/uL (0.0-0.2); Eosinophils Absolute Auto 0.2 X10*3/uL (0.0-0.4); Eosinophils Percent Auto 3.9 % (0-4); Hematocrit 47.4 % (37.0-47.0); Hemoglobin 15.4 g/dl (12.0-16.0); Imm Gran Abs Auto 0.01 X10*3/uL (0.00-0.03); Imm Gran Pct Auto 0.2 % (0.0-0.4); Lymphocytes Absolute Auto 1.2 X10*3/uL (1.2-4.9); Lymphocytes Percent Auto 24.4 % (20-40); Mean Corpuscular HGB Conc 32.5 g/dl (31.0-35.0); Mean Corpuscular Volume 95.6 fL (80.0-98.0); Mean Platelet Volume 11.8 fL (9.4-12.3); Monocytes Absolute Auto 0.5 X10*3/uL (0.1-1.2); Neutrophils Percent Auto 60.5 % (45-73); Platelet Count 235 X10*3/uL (160-400); Red Blood Count 4.96 X10*6/uL (4.20-5.50); Red Cell Distribution Width 13.7 % (11.0-16.0); White Blood Count 4.9 X10*3/uL (4.8-10.8)
[2024-05-14 12:31] LABS: Alanine Aminotransferase 17 U/L (0-31); Albumin Level 3.8 g/dL (3.5-5.0); Alkaline Phosphatase 81 U/L (39-117); Anion Gap 12 (12-20); Aspartate Amino Transferase 27 U/L (5-31); Bilirubin Direct 0.3 mg/dL (0.0-0.5); Bilirubin Total 0.8 mg/dL (0.0-1.0); Blood Urea Nitrogen 14 mg/dL (9-16); C Reactive Protein 0.19 mg/dL (< or = 0.50); Calcium 9.1 mg/dL (8.4-10.2); Carbon Dioxide 26 mmol/L (22-29); Chloride 108 mmol/L (96-108); Cholesterol 126 mg/dL (<200); Estimated Glomerular Filt Rate > 60; Glucose Fasting 92 mg/dL (60-99); HDL Cholesterol 49 mg/dL (>40); LDL Cholesterol Calculated 54 mg/dL (<100); Potassium 4.1 mmol/L (3.3-5.1); Sodium 142 mmol/L (135-145); Triglycerides 116 mg/dL (<150)
[2024-05-14 12:48] LABS: TSH reflex Free T4 1.02 uIU/mL (0.32-4.0); Vitamin D 25-OH Total 87.7 ng/mL (>30)
[2024-05-14 12:50] LABS: Estimated Average Glucose 123 mg/dL; Hemoglobin A1C 164.4851 umol/L; Hemoglobin A1c % 5.9 % (<6.0); Total Hemoglobin (HGBA1C) 4052.4117 umol/L
[2024-05-14 13:16] LABS: Folate 11.5 ng/mL (> or = 4.0); Vitamin B12 203 pg/mL (200-900)
== END 2024-05-14 08:52 | disposition home or self-care (01) ==
LOC: HO.HMGCLDS 08:51
PROVIDERS: PCP Internal Medicine; Visit Provider Physician Assistant Medical
DX: Z00.00 Encounter for general adult medical examination without abnormal findings (principal); Z13.1 Encounter for screening for diabetes mellitus; Z13.6 Encounter for screening for cardiovascular disorders
CPT/HCPCS: 36415; 80053; 80061; 80076; 82248; 82306; 82607; 82746; 83036; 83735; 83970; 84443; 85025; 86140

== ENCOUNTER 2024-05-25 11:12 | Outpatient (AMB) | payer MEDICARE, SELFPAY ==
--- NOTE | 2024-05-25 10:48 | A.OFFPC_ITS ---
Vital Signs 05/25/24 11:00 Height 5 ft 2 in Weight 209 lb BMI 38.2 BP 131/71 Blood Pressure Location Lt brachial Pulse 78 Pulse Source Monitor Temp 98.3 F Pulse Oximetry (%) 97 Intake Visit Reasons: 6 month follow up Intake Note: why was she referred to a hormone doctor Allergies aspirin [ASPIRIN] Allergy (Intermediate, Verified 05/25/24 10:51) bruising amoxicillin [Amoxicillin] Allergy (Unknown, Verified 05/25/24 10:51) DIARRHEA/NAUSES metoprolol [Toprol XL] Allergy (Unknown, Verified 05/25/24 10:51) headaches meloxicam [From MOBIC] Adverse Reaction (Intermediate, Verified 05/25/24 10:51) DIARRHEA [facility] Medical History (Updated 05/25/24 @ 13:05 by Nilad Watkins PA-C) Lactose intolerance Class 2 obesity with body mass index (BMI) of 38.0 to 38.9 in adult Essential hypertension Follow-up exam, 3-6 months since previous exam Elevated parathyroid hormone Obstructive sleep apnea Atrial fibrillation Depression Irritable bowel syndrome Colitis Osteoarthritis GERD (gastroesophageal reflux disease) Hypercholesterolemia Hypothyroidism Surgical History History of cardiac pacemaker History of cataract surgery History of total knee replacement (TKR) History of hysterectomy Family History Mother Breast cancer Sister Ovarian cancer Social History Alcohol intake: never Patient Tobacco Use Status: Never used Tobacco Questionnaire PHQ-9 Over the last 2 weeks, how often have you been bothered by any of the following problems? 1. Little interest or pleasure in doing things: not at all 2. Feeling down, depressed, or hopeless: not at all 3. Trouble falling or staying asleep, or sleeping too much: nearly every day 4. Feeling tired or having little energy: not at all 5. Poor appetite or overeating: more than half the days 6. Feeling bad about yourself - or that you are a failure or have let yourself or your family down: not at all 7. Trouble concentrating on things, such as reading the newspaper or watching television: not at all 8. Moving or speaking so slowly that other people could have noticed. Or the opposite - being so fidgety or restless that you have been moving around a lot more than usual: several days 9. Thoughts that you would be better off or of hurting yourself in some way: not at all Total score: 6 Depression Screening Interpretation: Positive Depression Screening Follow-up: In treatment Depression Screening Done: Yes 42404 - PHQ-9 Billing: Yes Source: Developed by Drs. Adithya Betancourt, Natalia Davis, Hung Card and colleagues, with an educational cookie from [employer]. Thrive Questionnaire Date Thrive assessed: 05/25/24 I am a: Patient What is your living situation today?: I have a steady place to live Within the past 12 months, did the food you bought not last and you didn't have the money to get more?: Never true Within the past 12 months, did you worry whether your food would run out before you got money to buy more?: Never true Do you have trouble paying for medicines?: No Do you have trouble getting transportation to medical appointments?: No Do you have trouble paying your heating and electricity bill?: No Do you have trouble taking care of your child, family member or friend?: No Do you have trouble with day-to-day activities such as bathing, preparing meals, shopping, managing finances, etc.?: No Are you currently unemployed and looking for a job?: No Are you interested in more education?: No THRIVE Score: 0 AUDIT C Alcohol Use Questionnaire (AUDIT-C) 1. How often do you have a drink containing alcohol?: Monthly or less 3. How often do you have six or more drinks on one occasion?: Never Total Score: 1 Score Reviewed/Action Taken: No SANYA-7 AMB Questionnaire SANYA-7 Date SANYA - 7 assessed: 05/25/24 Feeling nervous, anxious, or on edge: 0 = Not at all Not being able to stop or control worryin = More than half the days Worrying too much about different things: 0 = Not at all Trouble relaxin = Not at all Being so restless that it is hard to sit still: 0 = Not at all Becoming easily annoyed or irritable: 0 = Not at all Feeling afraid as if something awful might happen: 0 = Not at all Total SANYA-7 score (0-4 normal; 5-9 mild; 10-14 moderate; 15-21 severe): 2 Source: Developed by Drs. Adithya Betancourt, Natalia Davis, Hung Card and colleagues, with an educational cookie from [employer]. SANYA-7 Assessment Billing SANYA-7 Assessment Tool: SANYA-7 Assessment 34616 Physical exam (Primary Care) Vital Signs: Last Vital Signs Temp 98.3 F 05/25/24 11:00 Pulse 78 05/25/24 11:00 BP 131/71 05/25/24 11:00 Pulse Ox 97 05/25/24 11:00 Care Plan Goal for BP management: <130/80 at goal BMI result Body Mass Index 38.2 BMI Assessment/Plan discussion: High BMI High, discussed plan: lifestyle, weight reduction, dietary, physical activity and alcohol moderation Tobacco/Smoking Status: Tobacco use Status Patient Tobacco Use Status Never used Tobacco 05/25/24 11:05 Depression Screening Interpretation: Positive Depression Screening Follow-up: In treatment Thrive Assessment: Date of Thrive Assessment Date Thrive assessed 05/25/24 05/25/24 11:11 Coding Level of Care Code Est Pt Level 4 (27010) Complex EM visit Add On G2211 Diagnoses Follow-up exam, 3-6 months since previous exam Z09 Atrial fibrillation I48.91 GERD (gastroesophageal reflux disease) K21.9 Hypothyroidism E03.9 Elevated parathyroid hormone R79.89 Osteoarthritis M19.90 Essential hypertension I10 Depression F32.9 Class 2 obesity with body mass index (BMI) of 38.0 to 38.9 in adult E66.812; Z68.38 Lactose intolerance E73.9 Additional Codes PHQ-9 - 94323 - PHQ-9 Billing: Yes ([id number]) SANYA-7 Assessment Billing - SANYA-7 Assessment Tool: SANYA-7 Assessment [id number] ([id number]) Assessment & Plan Assessment & Plan (1) Follow-up exam, 3-6 months since previous exam: Code(s): Z09 - Encounter for follow-up examination after completed treatment for conditions other than malignant neoplasm Category: Medical (2) Atrial fibrillation: Code(s): I48.91 - Unspecified atrial fibrillation Category: Medical Plan: Continue metoprolol and Eliquis. Pacemaker monitoring as scheduled. (3) GERD (gastroesophageal reflux disease): Code(s): K21.9 - Gastro-esophageal reflux disease without esophagitis Category: Medical Plan: Continue current management plan. (4) Hypothyroidism: Code(s): E03.9 - Hypothyroidism, unspecified Category: Medical Plan: Continue current management with levothyroxine 100 mcg daily. (5) Elevated parathyroid hormone: Code(s): R79.89 - Other specified abnormal findings of blood chemistry Category: Medical Plan: The parathyroid hormone level will be rechecked at [facility]. If normal, the endocrinology referral can be canceled. (6) Osteoarthritis: Code(s): M19.90 - Unspecified osteoarthritis, unspecified site Category: Medical Plan: Maintain activity through gentle balance exercises. (7) Essential hypertension: Code(s): I10 - Essential (primary) hypertension Category: Medical Plan: Maintain current antihypertensive therapy with Eliquis 5 mg p.o. b.i.d., atorvastatin 10 mg daily, metoprolol extended release 50 mg daily. Condition is chronic and stable continue to monitor. (8) Depression: Code(s): F32.9 - Major depressive disorder, single episode, unspecified Category: Medical Plan: Maintain with sertraline 50 mg daily, no current plans for counseling. (9) Class 2 obesity with body mass index (BMI) of 38.0 to 38.9 in adult: Code(s): E66.812 - Obesity, class 2; Z68.38 - Body mass index [BMI] 38.0-38.9, adult Category: Medical Plan: Patient to improve her diet and exercise regimen. Condition is chronic and stable continue to monitor. (10) Lactose intolerance: Code(s): E73.9 - Lactose intolerance, unspecified Category: Medical Plan: Patient instructed to use Lactaid pills I tried to prescribe her prescription if not she can buy [id number] medication. Condition is chronic and stable continue to monitor. Plan Plan Patient was informed and verbally consented to the use of an ambient scribe for clinic note documentation during this visit. 1. Atrial Fibrillation Continue metoprolol and Eliquis. Pacemaker monitoring as scheduled. 2. Gastroesophageal Reflux Disease Gerd Continue current management plan. 3. Secondary Hyperparathyroidism The parathyroid hormone level will be rechecked at [facility]. If normal, the endocrinology referral can be canceled. 4. Osteoarthritis Maintain activity through gentle balance exercises. 5. Essential Hypertension Maintain current antihypertensive therapy. 6. Hypothyroidism Continue current management with levothyroxine 100 mcg daily. 7. Depression Maintain with sertraline 50 mg daily, no current plans for counseling. Discussion Notes The patient and I discussed the need to repeat the parathyroid hormone test at [facility] due to suspected lab error at the previous testing facility. She understood that the appointment with endocrinology might be unnecessary if results are normal. We confirmed her current medications and ongoing management of chronic conditions such as hypothyroidism, atrial fibrillation, and osteoarthritis. The benefits of consistent exercise were highlighted. The use of lactase supplements was advised to manage lactose intolerance effectively. It was agreed to maintain regular monitoring of her pacemaker and thyroid function. Orders: Orders Parathyroid Hormone Intact Today Z00.00 - Encounter for general adult medical examination without abnormal findings Medications: New lactase administer with meals and/or snacks 9,000 units PO DAILY PRN 30 tabs 3RF lactose intolerance Patient Instructions: - Follow up with [facility] for parathyroid hormone level testing today. - Continue all current medications as prescribed. - Maintain regular activities and exercises at the [facility]. - Obtain lactase supplements over the counter for management of lactose intolerance. - Await results of parathyroid hormone test; will receive notification if further action is needed. - Contact the office if experiencing any new symptoms or concerns related to current health issues. Scribe Plan - Not visible on output: History of Present Illness The patient is an 83-year-old female presenting with a primary reason for visit of a six-month follow-up and reevaluation of elevated parathyroid hormone levels. The patient reports a referral for endocrinology previously made due to elevated parathyroid hormone levels detected during a routine blood test. No symptoms initially prompted the test, and there were discussions about possible lab errors leading to the elevation. The provider states the parathyroid hormone elevation might be medication-related or due to a laboratory error. The patient is actively engaged in managing multiple chronic conditions including hypothyroidism, hypercholesterolemia, osteoarthritis, atrial fibrillation, GERD, irritable bowel syndrome, colitis, and depression. For atrial fibrillation, she has a pacemaker with two leads and is on anticoagulation therapy with Eliquis. The pacemaker is monitored both at home and in clinic every three months. The patient has been managing her chronic conditions with prescribed medications and is under close follow-up with respective specialists as needed. Social History - Lives alone but hires help for household tasks - Attends the [facility] weekly for exercises and meals - Maintains an active lifestyle with gentle balance exercises and light home activities - Reports consuming junk food occasionally and has a liking for ice cream Review of Systems - Gastrointestinal: Reports diarrhea associated with lactose intolerance. - Cardiovascular: Denies leg swelling. - Dermatological: Reports using mupirocin as needed for skin rashes. - Musculoskeletal: Denies joint pain apart from documented osteoarthritis. - General: Reports independent living, with occasional assistance. Physical Exam Appearance: Alert. Oriented X3. No acute distress. Head: Normal external exam. Normocephalic. Atraumatic. Eyes: Pupils are equal, round, and reactive to light. Extraocular movements intact. Conjunctiva and sclera normal. Eyelids normal. Ears: External auditory canal normal. Tympanic membranes normal. Throat: Pharynx normal. Uvula midline. Moist mucous membranes. Neck: Normal inspection. Neck supple. Full range of motion. No adenopathy. Thyroid Normal. No meningeal signs. No neck mass noted. Cardiovascular: Normal heart rate and rhythm. Heart sound normal. No murmurs noted. Pulses normal throughout. Respiratory: No respiratory distress. Painless inspiration. Breath sounds normal. No wheezes/rales/rhonchi noted. Chest nontender. No accessory muscle usage noted or decreased air movement noted. Abdomen: Soft and nontender. Bowel sounds normal in all 4 quadrants. No distention noted. No organomegaly noted. No visible injury noted. Back: No costovertebral angle tenderness. Full range of motion noted. Skin: Skin warm and dry. Normal skin color. Normal skin turgor. No rashes/lesions/lacerations noted. Extremities: No lower extremity edema. Extremities exhibit normal range of motion. Extremities nontender. Neuro: Oriented X 3. No motor deficit. No sensory deficit. Reflexes normal. Results - Labs: Previously elevated parathyroid hormone, normal calcium levels, normal thyroid function, normal CBC, normal chemistries, and hemoglobin A1c at 5.9. Patient Instructions - Follow up with [facility] for parathyroid hormone level testing today. - Continue all current medications as prescribed. - Maintain regular activities and exercises at the [facility]. - Obtain lactase supplements over the counter for management of lactose intolerance. - Await results of parathyroid hormone test; will receive notification if further action is needed. - Contact the office if experiencing any new symptoms or concerns related to current health issues.
[2024-05-25 11:00] VITALS: BP 131/71; PULSE 78; TEMP 36.8; O2SAT 97; BMI 38.2
== END 2024-05-25 11:23 | disposition home or self-care (01) ==
LOC: HO.HMCSH 11:12
PROVIDERS: PCP Internal Medicine; Visit Provider Physician Assistant Medical
DX: I48.91 Unspecified atrial fibrillation (principal); K21.9 Gastro-esophageal reflux disease without esophagitis; E03.9 Hypothyroidism, unspecified; R79.89 Other specified abnormal findings of blood chemistry; M19.90 Unspecified osteoarthritis, unspecified site; I10 Essential (primary) hypertension; F32.9 Major depressive disorder, single episode, unspecified; E66.812 Obesity, class 2; Z68.38 Body mass index [BMI] 38.0-38.9, adult; E73.9 Lactose intolerance, unspecified

== ENCOUNTER → 2024-05-25 11:12 | Outpatient (BNVA) | payer MEDICARE, SELFPAY | PROVIDERS: PCP Internal Medicine; Visit Provider Physician Assistant Medical | DX: Z09 Encounter for follow-up examination after completed treatment for conditions other than malignant neoplasm (principal); I48.91 Unspecified atrial fibrillation; K21.9 Gastro-esophageal reflux disease without esophagitis; M19.90 Unspecified osteoarthritis, unspecified site; R79.89 Other specified abnormal findings of blood chemistry; E03.9 Hypothyroidism, unspecified; I10 Essential (primary) hypertension; F32.9 Major depressive disorder, single episode, unspecified; E66.812 Obesity, class 2; Z68.38 Body mass index [BMI] 38.0-38.9, adult; Z71.3 Dietary counseling and surveillance | CPT/HCPCS: 96127; 99212 ==

== ENCOUNTER 2024-06-27 15:41 | Emergency (ER) | payer MEDICARE, SELFPAY ==
--- NOTE | ~2024-06-27 | XR_ITS ---
EXAMINATION: XR CHEST CLINICAL INFORMATION: CHest pain COMPARISON: 11/08/2018. TECHNIQUE: Frontal view of the chest was obtained. FINDINGS: Dual lead pacer device in the left hemithorax, with leads extending into the right atrium and right ventricle. Borderline cardiac enlargement. The hilar and mediastinal contours are normal. Mild aortic mural calcification. The lungs are well inspired and clear bilaterally. No pneumothorax or effusion. No focal osseous or soft tissue abnormality. XR/XR chest 1V IMPRESSION: 1. Left dual lead pacer device in good position. 2. No active pulmonary disease. Electronically signed by: Siddharth Pham MD 06/27/2024 04:33 PM EDT
--- NOTE | 2024-06-27 15:43 | ECG_ITS ---
Test Reason : CHEST PAIN Blood Pressure : */* mmHG Vent. Rate : 95 BPM Atrial Rate : * BPM P-R Int : * ms QRS Dur : 104 ms QT Int : 370 ms P-R-T Axes : * -48 129 degrees QTcB Int : 464 ms Atrial fibrillation Left axis deviation Minimal voltage criteria for LVH, may be normal variant ( Ravi product ) Septal infarct , age undetermined ST & T wave abnormality, consider lateral ischemia Abnormal ECG When compared with ECG of 23-Nov-2018 11:09, Significant changes have occurred Referred By: Luisito Johnson Electronically Signed By: ASHELY CERNA
[2024-06-27 15:51] VITALS: BP 147/56; PULSE 70; RESP 18; TEMP 36.7; O2SAT 97; BMI 32.3
--- NOTE | 2024-06-27 15:55 | ED_ITS ---
HPI - Chest Pain General Chief Complaint: Chest Pain Stated Complaint: chest and arm pain, cold Time Seen by Provider: 06/27/24 17:28 Source: patient Mode of arrival: ambulatory Limitations: no limitations History of Present Illness ED Provider: HPI narrative: Patient's history of hypertension atrial fibrillation status post dual-chamber pacemaker on Eliquis comes here for 10 days of cough with the nasal congestion and for 3 days of complaining of left upper chest pain and left shoulder pain when cough. Patient was seen by PCP 5 days ago prescribe Z-Pascual inhaler and cefpodoxime patient is feeling much better from the cough had low-grade fever Related Data Home Medications ?Medication ?Instructions ?Recorded ?Confirmed amoxicillin 500 mg capsule 2,000 mg PO ONCE 07/31/20 08/10/20 atorvastatin 10 mg tablet 10 mg PO DAILY 07/31/20 08/10/20 levothyroxine 100 mcg tablet 100 mcg PO DAILY 07/31/20 08/10/20 calcium amino acid chelate mg PO 05/25/24 psyllium husk 0.52 gram capsule 0.52 g PO DAILY 05/25/24 (Daily Fiber) Previous Rx's ?Medication ?Instructions ?Recorded mupirocin calcium 2 % topical cream 1 appl topical BID Ear infection 08/10/20 #15 grams apixaban 5 mg tablet 5 mg PO BID #180 tabs 03/04/24 lactase 9,000 unit tablet 9,000 unit PO DAILY PRN lactose 05/25/24 intolerance #30 tabs sertraline 50 mg tablet 50 mg PO DAILY #90 tabs 05/31/24 metoprolol succinate 50 mg 50 mg PO DAILY #90 tabs 06/01/24 tablet,extended release 24 hr albuterol sulfate 90 mcg/actuation 1 inh inhalation QID PRN shortness 06/21/24 aerosol inhaler of breath or wheezing #6.7 grams azithromycin 250 mg tablet See Rx Instructions PO .COMPLEX #6 06/21/24 tabs cefpodoxime 200 mg tablet 200 mg PO BID 10 days #20 tabs 06/21/24 guaifenesin 600 mg tablet, 600 mg PO BID #20 tabs 06/27/24 extended release 12 hr (Mucinex) prednisone 20 mg tablet 40 mg (2 x 20 mg) PO DAILY #10 tabs 06/27/24 Allergies Allergy/AdvReac Type Severity Reaction Status Date / Time aspirin [ASPIRIN] Allergy Intermediate bruising Verified 06/27/24 15:53 amoxicillin [Amoxicillin] Allergy Unknown DIARRHEA/NA Verified 06/27/24 15:53 USES metoprolol [Toprol XL] Allergy Unknown headaches Verified 06/27/24 15:53 meloxicam [From MOBIC] AdvReac Intermediate DIARRHEA Verified 06/27/24 15:53 Review of Systems 2 Review of Systems: Yes all other systems are reviewed and are negative [facility] Past Medical History Medical History Cough Lactose intolerance Class 2 obesity with body mass index (BMI) of 38.0 to 38.9 in adult Essential hypertension Follow-up exam, 3-6 months since previous exam Elevated parathyroid hormone Obstructive sleep apnea Atrial fibrillation Depression Irritable bowel syndrome Colitis Osteoarthritis GERD (gastroesophageal reflux disease) Hypercholesterolemia Hypothyroidism Surgical History History of cardiac pacemaker History of cataract surgery History of total knee replacement (TKR) History of hysterectomy Family History Family History Mother Breast cancer Sister Ovarian cancer Social History Social History Alcohol intake: never Patient Tobacco Use Status: Never used Tobacco Advance Directives: No Advance Directives Information Provided: No Do you have a plan to hurt others: No Plan Physical Exam 2 Vital Signs: Vital Signs: Last Vital Signs Temp 99.0 F 06/27/24 19:41 Pulse 78 06/27/24 19:41 Resp 14 06/27/24 19:41 BP 126/68 06/27/24 19:41 Pulse Ox 98 06/27/24 19:41 O2 Del Method Room Air 06/27/24 19:41 BMI result Body Mass Index 32.3 Appearance: Alert. Oriented X3. No acute distress. Eyes: No pallor or icterus ENT: Pharynx normal. Oral Mucosa moist Neck: Normal inspection. Neck supple. CVS: Normal heart rate and rhythm. Pulses normal. Respiratory: No respiratory distress. Equal air entry bilateral, bilateral prolonged expiration Abdomen: Soft and nontender. Bowel sounds are present, no mass palpable, no CVA tenderness Skin: Skin warm and dry. Normal skin color. Normal skin turgor. Extremities: No lower extremity edema. No calf tenderness Neuro: Oriented X 3. No motor deficit. Course Course Course Narrative: CALLUM; 83-year-old female presents to ED for 3 days chest heaviness and discomfort for the past 3 days. Patient has had URI for tenderness then started having chest pain. Patient denies any leg swelling pitting edema or pleurisy. Chest x-ray EKG ordered. Medications Administered Discontinued Medications Generic Name Dose Route Start Last Admin Trade Name Freq PRN Reason Stop Dose Admin Guaifenesin/Codeine Phosphate 10 ml 06/27/24 17:56 06/27/24 18:08 Guaifen/Codeine Sf 200/20/10ml 10 Ml Liquid PO 06/27/24 17:57 10 ml ONCE ONE Administration Prednisone 40 mg 06/27/24 17:55 06/27/24 18:08 Prednisone 20 Mg Tablet PO 06/27/24 17:56 40 mg ONCE ONE Administration Medical Decision Making Medical Decision Making [facility] Narrative: Patient has acute bronchitis chest x-ray negative for pneumonia already on cefpodoxime and just finished Zithromax will prescribe prednisone advised to continue inhaler Differential Diagnosis Differential Diagnoses: The differential diagnosis associated with the presentation includes Bronchitis/pneumonia/CHF Lab Data [facility] Lab Attestation statement: I reviewed the patient's lab results. 06/27/24 16:07 06/27/24 16:07 Labs: Lab Results 06/27/24 06/27/24 Range/Units 16:07 17:26 WBC 10.0 (4.8-10.8) X10*3/uL RBC 4.91 (4.20-5.50) X10*6/uL Hgb 15.5 (12.0-16.0) g/dl Hct 46.3 (37.0-47.0) % MCV 94.3 (80.0-98.0) fL MCH 31.6 (27.0-33.0) pg MCHC 33.5 (31.0-35.0) g/dl RDW 12.5 (11.0-16.0) % Plt Count 251 (160-400) X10*3/uL MPV 11.0 (9.4-12.3) fL Immature Gran % (Auto) 0.4 (0.0-0.4) % Neut % (Auto) 75.8 H (45-73) % Lymph % (Auto) 13.9 L (20-40) % Greene % (Auto) 8.3 (2-11) % Eos % (Auto) 1.1 (0-4) % Baso % (Auto) 0.5 (0-2) % Lymph # (Auto) 1.4 (1.2-4.9) X10*3/uL Greene # (Auto) 0.8 (0.1-1.2) X10*3/uL Eos # (Auto) 0.1 (0.0-0.4) X10*3/uL Baso # (Auto) 0.1 (0.0-0.2) X10*3/uL Abs Immat Gran (auto) 0.04 H (0.00-0.03) X10*3/uL Absolute Neuts (auto) 7.6 (2.0-8.3) x10*3/uL Absolute Nucleated RBC 0.000 (0.0-0.012) X10*3/uL Nucleated RBC % (auto) 0.0 (0.0-0.2) /100WBC PT 17.8 H (10.9-12.4) SEC INR 1.5 H (0.9-1.1) APTT 32.5 (26.0-36.8) SEC Sodium 142 (135-145) mmol/L Potassium 3.3 (3.3-5.1) mmol/L Chloride 105 (96-108) mmol/L Carbon Dioxide 27 (22-29) mmol/L Anion Gap 13 (12-20) BUN 15 (9-16) mg/dL Creatinine 0.79 (0.5-1.4) mg/dL Estim Creat Clear Calc 57.0 Estimated GFR > 60 Random Glucose 106 (60-115) mg/dL Calcium 9.1 (8.4-10.2) mg/dL Total Bilirubin 0.9 (0.0-1.0) mg/dL AST 24 (5-31) U/L ALT 11 (0-31) U/L Alkaline Phosphatase 82 (39-117) U/L Troponin I High Sens 3.7 (<3.5-17.0) ng/L B-Natriuretic Peptide 239 H (<100) pg/mL Total Protein 7.1 (6.5-8.0) g/dL Albumin 4.0 (3.5-5.0) g/dL Influenza Type A (PCR) NEGATIVE (Negative) Influenza Type B (PCR) NEGATIVE (Negative) RSV RNA Qual (PCR) NEGATIVE (Negative) SARS-CoV-2 RNA (RT-PCR) NEGATIVE (Negative) Discharge Plan Discharge Clinical Impression: Acute bronchitis Patient Disposition: Home, Self-Care Instructions: Acute Bronchitis (ED) Additional Instructions: Continue take your antibiotic as prescribed by your PCP Take Prednisone as prescribed Mucinex for cough Tylenol for pain Follow with your PCP Prescriptions: New prednisone 20 mg tablet 40 mg PO DAILY Qty: 10 0RF guaifenesin [Mucinex] 600 mg tablet extended release 12hr 600 mg PO BID Qty: 20 0RF No Action apixaban 5 mg tablet 5 mg PO BID Qty: 180 1RF sertraline 50 mg tablet 50 mg PO DAILY Qty: 90 1RF metoprolol succinate 50 mg tablet extended release 24 hr 50 mg PO DAILY Qty: 90 1RF azithromycin 250 mg tablet See Rx Instructions PO .COMPLEX Qty: 6 0RF Rx Instructions: For 250 mg dose pack: take 500 mg today (day 1), then 250 mg for 4 days (days 2-5) PO albuterol sulfate 90 mcg/actuation HFA aerosol inhaler 1 inh inhalation QID PRN (Reason: shortness of breath or wheezing) Qty: 6.7 0RF cefpodoxime 200 mg tablet 200 mg PO BID 10 Days Qty: 20 0RF Rx Instructions: must administer with a meal/food amoxicillin 500 mg capsule 2,000 mg PO ONCE atorvastatin 10 mg tablet 10 mg PO DAILY levothyroxine 100 mcg tablet 100 mcg PO DAILY mupirocin calcium 2 % cream 1 appl topical BID Qty: 15 1RF calcium amino acid chelate 200 mg calcium tablet PO psyllium husk [Daily Fiber] 0.52 gram capsule 0.52 g PO DAILY lactase 9,000 unit tablet 9,000 unit PO DAILY PRN (Reason: lactose intolerance) Qty: 30 3RF Rx Instructions: administer with meals and/or snacks Interventions: ED Discharge Assessment Last Done: 06/27/24 19:41 Discharge Date/Time: 06/27/24 19:44 Print Language: Danish
[2024-06-27 16:11] LABS: MANUAL DIFF FLAG NO
[2024-06-27 16:20] LABS: Basophils Absolute Auto 0.1 X10*3/uL (0.0-0.2); Basophils Percent Auto 0.5 % (0-2); Eosinophils Absolute Auto 0.1 X10*3/uL (0.0-0.4); Eosinophils Percent Auto 1.1 % (0-4); Hematocrit 46.3 % (37.0-47.0); Hemoglobin 15.5 g/dl (12.0-16.0); Imm Gran Abs Auto 0.04 X10*3/uL (0.00-0.03); Imm Gran Pct Auto 0.4 % (0.0-0.4); Lymphocytes Absolute Auto 1.4 X10*3/uL (1.2-4.9); Lymphocytes Percent Auto 13.9 % (20-40); Mean Corpuscular HGB Conc 33.5 g/dl (31.0-35.0); Mean Corpuscular Hemoglobin 31.6 pg (27.0-33.0); Mean Corpuscular Volume 94.3 fL (80.0-98.0); Monocytes Absolute Auto 0.8 X10*3/uL (0.1-1.2); Monocytes Percent Auto 8.3 % (2-11); Neutrophils Absolute Auto 7.6 x10*3/uL (2.0-8.3); Neutrophils Percent Auto 75.8 % (45-73); Platelet Count 251 X10*3/uL (160-400); Red Blood Count 4.91 X10*6/uL (4.20-5.50); Red Cell Distribution Width 12.5 % (11.0-16.0)
[2024-06-27 16:22] LABS: INTERNATIONAL NORM RATIO 1.5 (0.9-1.1); Prothrombin Time 17.8 SEC (10.9-12.4)
[2024-06-27 16:25] LABS: Partial Thromboplastin Time 32.5 SEC (26.0-36.8)
[2024-06-27 16:31] LABS: Alanine Aminotransferase 11 U/L (0-31); Anion Gap 13 (12-20); Aspartate Amino Transferase 24 U/L (5-31); Bilirubin Total 0.9 mg/dL (0.0-1.0); Blood Urea Nitrogen 15 mg/dL (9-16); Calcium 9.1 mg/dL (8.4-10.2); Carbon Dioxide 27 mmol/L (22-29); Chloride 105 mmol/L (96-108); Estimated Glomerular Filt Rate > 60; Glucose Random 106 mg/dL (60-115); Potassium 3.3 mmol/L (3.3-5.1); Sodium 142 mmol/L (135-145); Total Protein 7.1 g/dL (6.5-8.0)
[2024-06-27 16:33] LABS: B Type Natriuretic Peptide 239 pg/mL (<100); Troponin-I High Sensitivity 3.7 ng/L (<3.5-17.0)
[2024-06-27 16:41] LABS: Alkaline Phosphatase 82 U/L (39-117)
[2024-06-27 18:08] LABS: Influenza A PCR NEGATIVE (Negative); Influenza B PCR NEGATIVE (Negative); Resp Syncy Virus RNA Qual PCR NEGATIVE (Negative); SARS COV2 PCR INHOUSE NEGATIVE (Negative)
[2024-06-27] MEDS: guaiFEN/Codeine SF 200/20/10ML 10 ML LIQUID PO (18:08)
[2024-06-27] MEDS: predniSONE 20 MG TABLET 40 MG PO (18:08)
[2024-06-27 19:37] VITALS: BP 126/68; PULSE 78; RESP 14; TEMP 37.2; O2SAT 98
[2024-06-27 19:41] VITALS: BP 126/68; PULSE 78; RESP 14; TEMP 37.2; O2SAT 98
== END 2024-06-27 19:44 | disposition home or self-care (01) ==
PROVIDERS: Physician Assistant; Emergency Provider Internal Medicine; PCP Internal Medicine
DX: J40 Bronchitis, not specified as acute or chronic (principal); R07.9 Chest pain, unspecified; Z03.818 Encounter for observation for suspected exposure to other biological agents ruled out; I48.91 Unspecified atrial fibrillation; R05.9 Cough, unspecified; M25.512 Pain in left shoulder; Z79.01 Long term (current) use of anticoagulants; Z95.0 Presence of cardiac pacemaker
CPT/HCPCS: 0241U; 36415; 71045; 80053; 83880; 84484; 85025; 85610; 85730; 93005; 99283; 99284

== ENCOUNTER → 2024-06-27 15:43 | Outpatient (BNV) | payer MEDICARE, SELFPAY | PROVIDERS: Emergency Provider Internal Medicine; PCP Internal Medicine; Visit Provider Internal Medicine | DX: I48.91 Unspecified atrial fibrillation (principal) | CPT/HCPCS: 93010 ==

== ENCOUNTER → 2024-06-27 15:54 | Outpatient (BNV) | payer MEDICARE, SELFPAY | PROVIDERS: PCP Internal Medicine; Visit Provider Radiology Diagnostic Radiology | DX: R07.9 Chest pain, unspecified (principal) | CPT/HCPCS: 71045 ==

== ENCOUNTER 2024-07-08 13:30 | Outpatient (AMB) | payer MEDICARE, SELFPAY ==
[2024-07-08 13:53] VITALS: BP 109/61; PULSE 80; RESP 14; TEMP 36.5; O2SAT 96; BMI 31.9
--- NOTE | 2024-07-08 13:53 | A.OFFPC_ITS ---
Vital Signs 07/08/24 13:53 Height 5 ft 5 in Weight 192 lb BMI 31.9 BP 109/61 Blood Pressure Location Rt brachial Respiration 14 Pulse 80 Pulse Source Pulse Oximeter Temp 97.7 F Temp Source Temporal Artery Scan Pulse Oximetry (%) 96 Oxygen Delivery Method Room Air Intake Visit Reasons: follow up Inventory Associate Required: No Accompanied by: Self / Same As Patient Allergies aspirin [ASPIRIN] Allergy (Intermediate, Verified 07/08/24 14:29) bruising amoxicillin [Amoxicillin] Allergy (Unknown, Verified 07/08/24 14:29) DIARRHEA/NAUSES metoprolol [Toprol XL] Allergy (Unknown, Verified 07/08/24 14:29) headaches meloxicam [From MOBIC] Adverse Reaction (Intermediate, Verified 07/08/24 14:29) DIARRHEA Medication List - Last Reconciled 07/08/24 by Nilda Watkins PA-C albuterol sulfate 90 mcg/actuation 1 inh inhalation QID PRN apixaban 5 mg PO BID atorvastatin 10 mg PO DAILY calcium amino acid chelate mg PO guaifenesin ER (Mucinex) 600 mg PO BID levothyroxine 100 mcg PO DAILY metoprolol succinate ER 50 mg PO DAILY mupirocin calcium 2% 1 appl topical BID psyllium husk (Daily Fiber) 0.52 grams PO DAILY sertraline 50 mg PO DAILY Tobacco use date assessed: 07/08/24 Fall risk assessment: 1 Fall in past year (missed a step and had a fall) Last assessed Fall Risk: 07/08/24 Dental Screening Dental Screen Date: 07/08/24 Did you have a dental visit in the last 12 months?: Yes Did you have a dental problem in the last 6 months where you did not have access to dental care?: No Was dental information given to patient?: Patient has dentist HPI follow up HPI Details The patient is an 83-year-old female presenting with a follow-up after an emergency department visit. She was having upper respiratory symptoms was prescribed a Z-Pascual by myself although no improvement in her symptoms and her symptoms worsen. She started to have chest congestion therefore she was instructed to go to the emergency department. Patient reports she was seen at the emergency department was diagnosed with bronchitis. Had a negative chest x- ray. Was placed on a monitoring specialist. She was given fluids. She was sent home with albuterol, prednisone, mucus relief medication and antibiotic cefpodoxine which she has completed at this time. She reports she feels completely better. Patient reports she has a chronic history of low blood pressures. She denies any chest pain, dizziness or any other symptoms complaints or concerns related to this. Social History - Reports consistent mask-wearing outsid e due to pollen and having allergies. - Describes feeling isolated and restles s after a two-week period spent indoors. - Plans to visit her sister and pj stauffer as health permits. [facility] Medical History (Updated 07/08/24 @ 14:35 by Nilda Watkins PA-C) Elevated brain natriuretic peptide (BNP) level Chronic hypotension Bronchitis Cough Lactose intolerance Class 2 obesity with body mass index (BMI) of 38.0 to 38.9 in adult Essential hypertension Follow-up exam, 3-6 months since previous exam Elevated parathyroid hormone Obstructive sleep apnea Atrial fibrillation Depression Irritable bowel syndrome Colitis Osteoarthritis GERD (gastroesophageal reflux disease) Hypercholesterolemia Hypothyroidism Surgical History History of cardiac pacemaker History of cataract surgery History of total knee replacement (TKR) History of hysterectomy Family History Mother Breast cancer Sister Ovarian cancer Social History Housing: House Alcohol intake: current Alcohol intake frequency: holidays/special occasions only Patient Tobacco Use Status: Never used Tobacco service: No Current occupational status: retired Cognitive needs: Yes (cane) Hearing needs: No Vision needs: No Questionnaire PHQ-9 Over the last 2 weeks, how often have you been bothered by any of the following problems? 1. Little interest or pleasure in doing things: not at all 2. Feeling down, depressed, or hopeless: not at all 3. Trouble falling or staying asleep, or sleeping too much: nearly every day 4. Feeling tired or having little energy: not at all 5. Poor appetite or overeating: more than half the days 6. Feeling bad about yourself - or that you are a failure or have let yourself or your family down: not at all 7. Trouble concentrating on things, such as reading the newspaper or watching television: not at all 8. Moving or speaking so slowly that other people could have noticed. Or the opposite - being so fidgety or restless that you have been moving around a lot more than usual: several days 9. Thoughts that you would be better off or of hurting yourself in some way: not at all Total score: 6 Depression Screening Interpretation: Positive Depression Screening Follow-up: In treatment Depression Screening Done: Yes 76232 - PHQ-9 Billing: Yes Source: Developed by Drs. Adithya Betancourt, Natalia Davis, Hung Card and colleagues, with an educational cookie from [employer]. Thrive Questionnaire Date Thrive assessed: 05/25/24 I am a: Patient What is your living situation today?: I have a steady place to live Within the past 12 months, did the food you bought not last and you didn't have the money to get more?: Never true Within the past 12 months, did you worry whether your food would run out before you got money to buy more?: Never true Do you have trouble paying for medicines?: No Do you have trouble getting transportation to medical appointments?: No Do you have trouble paying your heating and electricity bill?: No Do you have trouble taking care of your child, family member or friend?: No Do you have trouble with day-to-day activities such as bathing, preparing meals, shopping, managing finances, etc.?: No Are you currently unemployed and looking for a job?: No Are you interested in more education?: No THRIVE Score: 0 AUDIT C Alcohol Use Questionnaire (AUDIT-C) 1. How often do you have a drink containing alcohol?: Monthly or less 3. How often do you have six or more drinks on one occasion?: Never Total Score: 1 Score Reviewed/Action Taken: No SANYA-7 AMB Questionnaire SANYA-7 Date SANYA - 7 assessed: 05/25/24 Feeling nervous, anxious, or on edge: 0 = Not at all Not being able to stop or control worryin = More than half the days Worrying too much about different things: 0 = Not at all Trouble relaxin = Not at all Being so restless that it is hard to sit still: 0 = Not at all Becoming easily annoyed or irritable: 0 = Not at all Feeling afraid as if something awful might happen: 0 = Not at all Total SANYA-7 score (0-4 normal; 5-9 mild; 10-14 moderate; 15-21 severe): 2 Source: Developed by Drs. Adithya Betancourt, Natalia Davis, Hung Card and colleagues, with an educational cookie from [employer]. SANYA-7 Assessment Billing SANYA-7 Assessment Tool: SANYA-7 Assessment 76479 Review of Systems Const Details: - Respiratory: Reports some mucus production which has significantly improved; Denies shortness of breath, denies wheezing. - Cardiovascular: Denies chest pain, lightheadedness, or dizziness. - General: Reports fatigue. - Neurological: Denies headaches or consciousness disturbances. Physical exam (Primary Care) Vital Signs: Last Vital Signs Temp 97.7 F 07/08/24 13:53 Pulse 80 07/08/24 13:53 Resp 14 07/08/24 13:53 BP 98/57 L 07/08/24 13:53 Pulse Ox 96 07/08/24 13:53 Oxygen Delivery Method Room Air 07/08/24 13:53 Care Plan Goal for BP management: <130/90 at Goal BMI result Body Mass Index 31.9 Tobacco/Smoking Status: Tobacco use Status Tobacco use date assessed 07/08/24 07/08/24 14:04 Patient Tobacco Use Status Never used Tobacco 07/08/24 14:04 PHQ-9: PHQ-9 Score PHQ-9: Total score 6 07/08/24 14:04 Depression Screening Interpretation: Positive Depression Screening Follow-up: In treatment Thrive Assessment: Date of Thrive Assessment Date Thrive assessed 05/25/24 07/08/24 14:04 Const Other: Appearance: Alert. Oriented X3. No acute distress. Head: Normal external exam. Normocephalic. Atraumatic. Eyes: Pupils are equal, round, and reactive to light. Extraocular movements intact. Conjunctiva and sclera normal. Eyelids normal. Throat: Pharynx normal. Uvula midline. Moist mucous membranes. Neck: Normal inspection. Neck supple. Full range of motion. Cardiovascular: Normal heart rate and rhythm. Heart sound normal. No murmurs noted. Pulses normal throughout. Respiratory: No respiratory distress. Painless inspiration. Breath sounds normal. No wheezes/rales/rhonchi noted. Chest nontender. No accessory muscle usage noted or decreased air movement noted. Lungs are completely clear. Abdomen: Soft and nontender. Bowel sounds normal in all 4 quadrants. No distention noted. No organomegaly noted. No visible injury noted. Back: No costovertebral angle tenderness. Full range of motion noted. Skin: Skin warm and dry. Normal skin color. Normal skin turgor. No rashes/lesions/lacerations noted. Extremities: No lower extremity edema. Extremities exhibit normal range of motion. Extremities nontender. Neuro: Oriented X 3. No motor deficit. No sensory deficit. Reflexes normal. Results Reviewed Results Reviewed: - Labs: ER labs were normal with an elevated BNP at 239 indicating mild fluid retention. - Imaging: Chest X-ray normal, ruling out pneumonia. Coding Level of Care Code Est Pt Level 3 (15581) Complex EM visit Add On G2211 Diagnoses Bronchitis J40 Chronic hypotension I95.89 Elevated brain natriuretic peptide (BNP) level R79.89 Additional Codes SANYA-7 Assessment Billing - SANYA-7 Assessment Tool: SANYA-7 Assessment 47681 ([id number]) PHQ-9 - 03490 - PHQ-9 Billing: Yes ([id number]) Assessment & Plan Assessment & Plan (1) Bronchitis: Code(s): J40 - Bronchitis, not specified as acute or chronic Category: Medical Plan: Condition is improving. Patient to continue mucus relief medicine. Condition is stable will continue to monitor and reassess if symptoms worsen. (2) Chronic hypotension: Code(s): I95.89 - Other hypotension Category: Medical Plan: Given her history of low baseline pressure, no changes needed if asymptomatic, with hydration stress. If any symptoms worsen patient is instructed to call us, go to the emergency department or call her piano case and bench assembler. Condition is chronic and stable will continue to monitor. (3) Elevated brain natriuretic peptide (BNP) level: Code(s): R79.89 - Other specified abnormal findings of blood chemistry Category: Medical Plan: Mild elevations require monitoring by her piano case and bench assembler, with no immediate change unless symptomatically warranted. Plan Plan Patient was informed and verbally consented to the use of an ambient scribe for clinic note documentation during this visit. 1. Bronchitis Following effective resolution with albuterol and prednisone treatment, avoidance of allergens and continuation of protective measures recommended. 2. Chronic Low Blood Pressure Hypotension Given her history of low baseline pressure, no changes needed if asymptomatic, with hydration stressed. 3. History Of Low Blood Pressure Consistent monitoring and reaching out if changes occur without further intervention were advised. 4. Mild elevation in BNP Mild elevations require monitoring by her piano case and bench assembler, with no immediate change unless symptomatically warranted. During our visit, we discussed the patient?s recovery and guidance for managing her allergy-induced bronchitis and sinusitis, emphasizing the avoidance of allergens through mask usage. Albuterol and prednisone alleviated bronchial symptoms confirmed to be non-viral and not pneumonia due to normal X-ray results. I reassured her on her typically low blood pressure, advising consistent monitoring. I explained the diagnosis, emphasizing BMP monitory and potential piano case and bench assembler follow-up for her congestive heart failure, ensuring fluid retention does not worsen. I advised her on maintaining a cautious approach returning to social activities without undue worry. Patient Instructions: - Continue using albuterol and prednisone as prescribed. - Avoid known allergens and wear a mask outdoors to reduce allergen exposure. - Monitor blood pressure regularly, especially during episodes of hypotension symptoms. - Be cautious when engaging in social activities and report any worsening of bronchitis, sinus symptoms, or heart issues promptly. - Schedule a follow-up with the piano case and bench assembler for reevaluation if necessary.
== END 2024-07-08 14:26 | disposition home or self-care (01) ==
LOC: HO.HMCSH 13:30
PROVIDERS: PCP Internal Medicine; Visit Provider Physician Assistant Medical
DX: J40 Bronchitis, not specified as acute or chronic (principal); I95.89 Other hypotension; R79.89 Other specified abnormal findings of blood chemistry

== ENCOUNTER → 2024-07-08 13:30 | Outpatient (BNVA) | payer MEDICARE, SELFPAY | PROVIDERS: PCP Internal Medicine; Visit Provider Physician Assistant Medical | DX: J40 Bronchitis, not specified as acute or chronic (principal); I95.89 Other hypotension; R79.89 Other specified abnormal findings of blood chemistry | CPT/HCPCS: 96127; 99212 ==

== ENCOUNTER 2024-10-31 09:10 | Emergency (ER) | payer MEDICARE, SELFPAY ==
[2024-10-31 09:14] VITALS: BP 166/76; PULSE 93; RESP 18; TEMP 35.7; O2SAT 95; BMI 31.6
[2024-10-31 11:28] VITALS: BP 133/70; PULSE 73; RESP 17; TEMP 36.3; O2SAT 96
--- NOTE | 2024-10-31 11:29 | ED.GENADULT ---
HPI - General Adult General Chief complaint: Eye Problems Stated complaint: bleeding eye Time Seen by Provider: 10/31/24 11:05 Source: patient Mode of arrival: ambulatory Limitations: no limitations History of Present Illness ED Provider: Dr. Greenwood [facility] narrative: 83-year-old female history of AFib on Eliquis, pacemaker implantation presented hospital today for evaluation of right-sided eye hemorrhage. Patient stated that she rubbed her right eye yesterday noticed some bleeding yesterday. She was going to go see the eye doctor today however the office was closed therefore she presents to the ER for evaluation. She denies any vision change. She states she does have some Zaira itchy feeling to her right eye. She stated the extend of the bleeding is similar to it did extend a bleeding from yesterday. There was no change. Related Data Home Medications ?Medication ?Instructions ?Recorded ?Confirmed atorvastatin 10 mg tablet 10 mg PO DAILY 07/31/20 07/08/24 calcium amino acid chelate mg PO 05/25/24 07/08/24 psyllium husk 0.52 gram capsule 0.52 g PO DAILY 05/25/24 07/08/24 (Daily Fiber) Previous Rx's ?Medication ?Instructions ?Recorded mupirocin calcium 2 % topical cream 1 appl topical BID Ear infection 08/10/20 #15 grams metoprolol succinate 50 mg 50 mg PO DAILY #90 tabs 06/01/24 tablet,extended release 24 hr albuterol sulfate 90 mcg/actuation 1 inh inhalation QID PRN shortness 06/21/24 aerosol inhaler of breath or wheezing #6.7 grams guaifenesin 600 mg tablet, 600 mg PO BID #20 tabs 06/27/24 extended release 12 hr (Mucinex) levothyroxine 100 mcg tablet 100 mcg PO DAILY #90 tabs 08/16/24 apixaban 5 mg tablet 5 mg PO BID #180 tabs 09/06/24 sertraline 50 mg tablet 50 mg PO DAILY #90 tabs 10/28/24 Allergies Allergy/AdvReac Type Severity Reaction Status Date / Time aspirin (ASPIRIN) Allergy Intermediate bruising Verified 10/31/24 09:17 amoxicillin (Amoxicillin) Allergy Unknown DIARRHEA/NA Verified 10/31/24 09:17 USES metoprolol (Toprol XL) Allergy Unknown headaches Verified 10/31/24 09:17 meloxicam (From MOBIC) AdvReac Intermediate DIARRHEA Verified 10/31/24 09:17 Review of Systems Review of Systems: Pertinent review of systems as mentioned in HPI. All other system otherwise negative. [facility] Past Medical History [facility] Narrative: Medical history as mentioned in HPI Medical History (Updated 10/31/24 @ 11:29 by Josseline Greenwood DO) Elevated brain natriuretic peptide (BNP) level Chronic hypotension Bronchitis Cough Lactose intolerance Class 2 obesity with body mass index (BMI) of 38.0 to 38.9 in adult Essential hypertension Follow-up exam, 3-6 months since previous exam Elevated parathyroid hormone Obstructive sleep apnea Atrial fibrillation Depression Irritable bowel syndrome Colitis Osteoarthritis GERD (gastroesophageal reflux disease) Hypercholesterolemia Hypothyroidism Surgical History History of cardiac pacemaker History of cataract surgery History of total knee replacement (TKR) History of hysterectomy Family History Family History Mother Breast cancer Sister Ovarian cancer Social History Social History Housing: House Alcohol intake: current Alcohol intake frequency: holidays/special occasions only Patient Tobacco Use Status: Never used Tobacco Advance Directives: Yes Advance Directives Information Provided: Yes Advance Directives on File: No service: No Current occupational status: retired Cognitive needs: Yes (cane) Hearing needs: No Vision needs: No Physical Exam ED Exam Exam: General: Pleasant, no distress, interacting appropriately Head: Normacephalic, atraumatic ENT: She does have subconjunctival hemorrhage on the right eye, no sign of ecchymosis on her face, vision is intact, EOMI, Wood lamp stain, no sign of scratches. did not reveal any signs of ulcer, scratches or Jair sign. Skin: Warm and dry Psychiatric: Appropriate mood and thoughts Vital Signs: Vital Signs - 24 hr 10/31/24 09:14 10/31/24 11:28 Temperature 96.3 F L 97.4 F Pulse Rate 93 73 Respiratory Rate 18 17 Blood Pressure 166/76 H 133/70 Pulse Oximetry 95 96 Oxygen Delivery Method Room Air Room Air BMI result Body Mass Index 31.6 Medical Decision Making Medical Decision Making MDM Narrative: This is a 83-year-old female history of AFib on Eliquis presented hospital today for evaluation of right eye subconjunctival hemorrhage. Her vision is intact, no sign of proptosis, patient does have signs of subconjunctival hemorrhage. No sign of hyphema. Pupils reactive, no sign of scratches on wood lamp exam, no sign of Jair sign, but did cira her eyelid. No sign of foreign object in her upper eyelid. I do not think patient has retrobulbar hematoma Patient appears to be well. We will plan to discharge patient with close outpatient follow up with her eye doctor. Patient is agreeable to this plan. Return precautions provided. Differential Diagnosis Differential Diagnoses: The differential diagnosis associated with the presentation includes Subconjunctival hemorrhage, hyphema, retrobulbar hematoma Chronic Conditions Hypertension, Anticoagulation on eliquis Discharge Plan Discharge Clinical Impression: Subconjunctival hemorrhage Qualifiers: Laterality: right Qualified Code(s): H11.31 - Conjunctival hemorrhage, right eye Patient Disposition: Home, Self-Care Additional Instructions: Subconjunctiva hemorrhage is a bleeding of the superficial vessels of the eye ball. This will resolve on its own. Watch for any vision changes, enlarging of your eyeball or uncontrolled bleeding. Please follow up with your eye doctor tomorrow. There was no signs of corneal abrasions or foreign object in your upper eyelid. Prescriptions: No Action metoprolol succinate 50 mg tablet extended release 24 hr 50 mg PO DAILY Qty: 90 1RF albuterol sulfate 90 mcg/actuation HFA aerosol inhaler 1 inh inhalation QID PRN (Reason: shortness of breath or wheezing) Qty: 6.7 0RF levothyroxine 100 mcg tablet 100 mcg PO DAILY Qty: 90 1RF apixaban 5 mg tablet 5 mg PO BID Qty: 180 1RF sertraline 50 mg tablet 50 mg PO DAILY Qty: 90 3RF guaifenesin [Mucinex] 600 mg tablet extended release 12hr 600 mg PO BID Qty: 20 0RF atorvastatin 10 mg tablet 10 mg PO DAILY mupirocin calcium 2 % cream 1 appl topical BID Qty: 15 1RF calcium amino acid chelate 200 mg calcium tablet PO psyllium husk [Daily Fiber] 0.52 gram capsule 0.52 g PO DAILY Print Language: Pashto
[2024-10-31] MEDS: Fluorescein Sodium STRIP 1 STRIP EYE-RIGHT (11:34)
[2024-10-31] MEDS: Tetracaine HCl 0.5% Oph Sol 5 ML DROPS 1 DROP EYE-RIGHT (11:37)
[2024-10-31 11:43] VITALS: BP 133/70; PULSE 73; RESP 17; TEMP 36.3; O2SAT 96
== END 2024-10-31 11:44 | disposition home or self-care (01) ==
PROVIDERS: Emergency Provider Student in an Organized Health Care Education/Training Program; PCP Internal Medicine
DX: H11.31 Conjunctival hemorrhage, right eye (principal); H57.89 Other specified disorders of eye and adnexa
CPT/HCPCS: 99283; 99284

== ENCOUNTER 2024-11-23 10:55 | Outpatient (AMB) | payer MEDICARE, SELFPAY ==
[2024-11-23 11:02] VITALS: BP 139/74; PULSE 81; TEMP 35.9; O2SAT 98; BMI 32.6
--- NOTE | 2024-11-23 11:02 | MHC.PC.OV ---
Vital Signs 11/23/24 11:02 Height 5 ft 5 in Weight 196 lb 2 oz BMI 32.6 BP 139/74 Blood Pressure Location Lt brachial Position Sitting Pulse 81 Pulse Source Pulse Oximeter Temp 96.7 F L Temp Source Temporal Artery Scan Pulse Oximetry (%) 98 Oxygen Delivery Method Room Air Intake Visit Reasons: 6 month f/u Manager Filter Required: No Accompanied by: Self / Same As Patient Allergies aspirin (ASPIRIN) Allergy (Intermediate, Verified 11/23/24 11:12) bruising amoxicillin (Amoxicillin) Allergy (Unknown, Verified 11/23/24 11:12) DIARRHEA/NAUSES metoprolol (Toprol XL) Allergy (Unknown, Verified 11/23/24 11:12) headaches meloxicam (From MOBIC) Adverse Reaction (Intermediate, Verified 11/23/24 11:12) DIARRHEA Medication List - Last Reconciled 11/23/24 by Nilda Watkins PA-C albuterol sulfate 90 mcg/actuation 1 inh inhalation QID PRN apixaban 5 mg PO BID atorvastatin 10 mg PO DAILY calcium amino acid chelate mg PO guaifenesin ER (Mucinex) 600 mg PO BID levothyroxine 100 mcg PO DAILY metoprolol succinate ER 50 mg PO DAILY mupirocin calcium 2% 1 appl topical BID psyllium husk (Daily Fiber) 0.52 grams PO DAILY sertraline 50 mg PO DAILY Tobacco use date assessed: 11/23/24 Dental Screening Dental Screen Date: 07/08/24 HPI 6 month f/u HPI Details The patient is an 83-year-old female presenting for a follow-up visit. She has a history of prediabetes, with a hemoglobin A1c of 5.9% noted in April, indicating a prediabetic state. Her recent dietary habits include high sugar intake, which may impact her glucose levels. The patient experienced a subconjunctival hemorrhage on October 31, attributed to a sleep apnea mask incident. She is on Eliquis, which may have contributed to the extent of the hemorrhage. Follow-up with an pattern layout worker confirmed no vision changes or dizziness. The patient has a history of hypertension, managed with metoprolol, and her blood pressure was noted to be normal during the visit. Hyperlipidemia is managed with atorvastatin, and she continues to take her medications as prescribed. She has hypothyroidism, for which she is taking levothyroxine. The patient has osteoarthritis, which affects her fingers, causing occasional discomfort. Social History - Lives independently without assistance from a nurse or IMPLEMENTATION ARCHITECT - Participates in senior center activities, including balance classes twice a week - Engages in orthodox and community activities [facility] Medical History (Updated 11/23/24 @ 13:45 by Nilda Watkins PA-C) Hyperlipidemia Subconjunctival hemorrhage Prediabetes Elevated brain natriuretic peptide (BNP) level Chronic hypotension Bronchitis Cough Lactose intolerance Class 2 obesity with body mass index (BMI) of 38.0 to 38.9 in adult Essential hypertension Follow-up exam, 3-6 months since previous exam Elevated parathyroid hormone Obstructive sleep apnea Atrial fibrillation Depression Irritable bowel syndrome Colitis Osteoarthritis GERD (gastroesophageal reflux disease) Hypercholesterolemia Hypothyroidism Surgical History History of cardiac pacemaker History of cataract surgery History of total knee replacement (TKR) History of hysterectomy Family History Mother Breast cancer Sister Ovarian cancer Social History Housing: House Alcohol intake: current Alcohol intake frequency: holidays/special occasions only Patient Tobacco Use Status: Never used Tobacco service: No Current occupational status: retired Cognitive needs: Yes (cane) Hearing needs: No Vision needs: No Questionnaire PHQ-9 Over the last 2 weeks, how often have you been bothered by any of the following problems? 1. Little interest or pleasure in doing things: not at all 2. Feeling down, depressed, or hopeless: not at all 3. Trouble falling or staying asleep, or sleeping too much: nearly every day 4. Feeling tired or having little energy: not at all 5. Poor appetite or overeating: more than half the days 6. Feeling bad about yourself - or that you are a failure or have let yourself or your family down: not at all 7. Trouble concentrating on things, such as reading the newspaper or watching television: not at all 8. Moving or speaking so slowly that other people could have noticed. Or the opposite - being so fidgety or restless that you have been moving around a lot more than usual: several days 9. Thoughts that you would be better off or of hurting yourself in some way: not at all Total score: 6 Depression Screening Interpretation: Positive Depression Screening Follow-up: In treatment Depression Screening Done: Yes 94402 - PHQ-9 Billing: Yes Source: Developed by Drs. Adithya Betancourt, Natalia Davis, Hung Card and colleagues, with an educational cookie from [employer]. Thrive Questionnaire Date Thrive assessed: 05/25/24 I am a: Patient What is your living situation today?: I have a steady place to live Within the past 12 months, did the food you bought not last and you didn't have the money to get more?: Never true Within the past 12 months, did you worry whether your food would run out before you got money to buy more?: Never true Do you have trouble paying for medicines?: No Do you have trouble getting transportation to medical appointments?: No Do you have trouble paying your heating and electricity bill?: No Do you have trouble taking care of your child, family member or friend?: No Do you have trouble with day-to-day activities such as bathing, preparing meals, shopping, managing finances, etc.?: No Are you currently unemployed and looking for a job?: No Are you interested in more education?: No THRIVE Score: 0 AUDIT C Alcohol Use Questionnaire (AUDIT-C) 1. How often do you have a drink containing alcohol?: Monthly or less 3. How often do you have six or more drinks on one occasion?: Never Total Score: 1 Score Reviewed/Action Taken: No SANYA-7 AMB Questionnaire SANYA-7 Date SANYA - 7 assessed: 05/25/24 Feeling nervous, anxious, or on edge: 0 = Not at all Not being able to stop or control worryin = More than half the days Worrying too much about different things: 0 = Not at all Trouble relaxin = Not at all Being so restless that it is hard to sit still: 0 = Not at all Becoming easily annoyed or irritable: 0 = Not at all Feeling afraid as if something awful might happen: 0 = Not at all Total ASNYA-7 score (0-4 normal; 5-9 mild; 10-14 moderate; 15-21 severe): 2 Source: Developed by Natalia Tom, Hung Card and colleagues, with an educational cookie from [employer]. SANYA-7 Assessment Billing SANYA-7 Assessment Tool: SANYA-7 Assessment 21150 Review of Systems Const Details: - General: Denies unintentional weight loss - Cardiovascular: Denies chest pain - Respiratory: Denies dyspnea - Gastrointestinal: Denies black or bloody stool - Neurological: Denies dizziness or changes in vision All systems reviewed & are unremarkable except as noted in HPI and below Physical exam (Primary Care) Vital Signs: Last Vital Signs Temp 96.7 F L 11/23/24 11:02 Pulse 81 11/23/24 11:02 BP 139/74 11/23/24 11:02 Pulse Ox 98 11/23/24 11:02 Oxygen Delivery Method Room Air 11/23/24 11:02 Care Plan Goal for BP management: <140/90 at Goal BMI result Body Mass Index 32.6 BMI Assessment/Plan discussion: High BMI High, discussed plan: lifestyle, weight reduction, dietary, physical activity, alcohol moderation and other Tobacco/Smoking Status: Tobacco use Status Tobacco use date assessed 11/23/24 11/23/24 11:06 Patient Tobacco Use Status Never used Tobacco 11/23/24 11:06 PHQ-9: PHQ-9 Score PHQ-9: Total score 6 11/23/24 11:27 Depression Screening Interpretation: Positive Depression Screening Follow-up: In treatment Thrive Assessment: Date of Thrive Assessment Date Thrive assessed 05/25/24 11/23/24 11:06 Const Other: Appearance: Alert. Oriented X3. No acute distress. Head: Normal external exam. Normocephalic. Atraumatic. Eyes: Pupils are equal, round, and reactive to light. Extraocular movements intact. Conjunctiva and sclera normal. Eyelids normal. Subconjunctival hemorrhage noted in the past, resolved with no current vision changes. Ears: External auditory canal normal. Tympanic membranes normal. Minimal wax present. Throat: Pharynx normal. Uvula midline. Moist mucous membranes. No trouble swallowing. Neck: Normal inspection. Neck supple. Full range of motion. No adenopathy. Thyroid Normal. No meningeal signs. No neck mass noted. Cardiovascular: Normal heart rate and rhythm. Heart sound normal. No murmurs noted. Pulses normal throughout. Respiratory: No respiratory distress. Painless inspiration. Breath sounds normal. No wheezes/rales/rhonchi noted. Chest nontender. No accessory muscle usage noted or decreased air movement noted. Abdomen: Soft and nontender. No distention noted. No organomegaly noted. Back: No costovertebral angle tenderness. Full range of motion noted. Skin: Skin warm and dry. Normal skin color. Normal skin turgor. No rashes/lesions/lacerations noted. Extremities: No lower extremity edema. Extremities exhibit normal range of motion. Extremities nontender. Neuro: Oriented X 3. No motor deficit. No sensory deficit. Reflexes normal. Results AMB Hemoglobin A1c AMB Hemoglobin A1c 5.8 % Last Edit by KAVITHA German on 11/23/24 11:28 Results Reviewed Results Reviewed: Laboratory Last Values Hgb A1c (Clinic) 5.8 % (4.0-6.0) 11/23/24 11:22 - Labs: Hemoglobin A1c was 5.9% in April, indicating prediabetes - Labs: CBC, kidney function tests, and electrolytes were normal Coding Level of Care Code Est Pt Level 4 (23164) Complex EM visit Add On G2211 Diagnoses Prediabetes R73.03 Subconjunctival hemorrhage H11.31 Laterality: right Essential hypertension I10 Hyperlipidemia E78.5 Hypothyroidism E03.9 Osteoarthritis M19.90 Additional Codes SANYA-7 Assessment Billing - SANYA-7 Assessment Tool: SANYA-7 Assessment 38167 ([id number]) PHQ-9 - 55820 - PHQ-9 Billing: Yes ([id number]) Time Spent (min) 50 Assessment & Plan Assessment & Plan (1) Prediabetes: Code(s): R73.03 - Prediabetes Category: Medical Plan: The patient's hemoglobin A1c was 5.9% in April, indicating prediabetes. Dietary habits include high sugar intake, which may impact glucose levels. A follow-up fingerstick glucose test was planned to monitor her glucose levels. (2) Subconjunctival hemorrhage: Code(s): H11.30 - Conjunctival hemorrhage, unspecified eye Category: Medical Qualifiers: Laterality: right Qualified Code(s): H11.31 - Conjunctival hemorrhage, right eye Plan: The patient experienced a subconjunctival hemorrhage on October 31, likely due to a sleep apnea mask incident. She is on Eliquis, which may have contributed to the extent of the hemorrhage. Follow-up with an pattern layout worker confirmed no vision changes or dizziness. (3) Essential hypertension: Code(s): I10 - Essential (primary) hypertension Category: Medical Plan: The patient has a history of hypertension, managed with metoprolol. Her blood pressure was noted to be normal during the visit. (4) Hyperlipidemia: Code(s): E78.5 - Hyperlipidemia, unspecified Category: Medical Plan: Hyperlipidemia is managed with atorvastatin, and the patient continues to take her medications as prescribed. (5) Hypothyroidism: Code(s): E03.9 - Hypothyroidism, unspecified Category: Medical Plan: The patient has hypothyroidism, for which she is taking levothyroxine. (6) Osteoarthritis: Code(s): M19.90 - Unspecified osteoarthritis, unspecified site Category: Medical Plan: The patient has osteoarthritis, which affects her fingers, causing occasional discomfort. Plan Plan Patient was informed and verbally consented to the use of an ambient scribe for clinic note documentation during this visit. 1. Prediabetes The patient's hemoglobin A1c was 5.9% in April, indicating prediabetes. Dietary habits include high sugar intake, which may impact glucose levels. A follow-up fingerstick glucose test was planned to monitor her glucose levels. 2. Subconjunctival Hemorrhage The patient experienced a subconjunctival hemorrhage on October 31, likely due to a sleep apnea mask incident. She is on Eliquis, which may have contributed to the extent of the hemorrhage. Follow-up with an pattern layout worker confirmed no vision changes or dizziness. 3. Hypertension The patient has a history of hypertension, managed with metoprolol. Her blood pressure was noted to be normal during the visit. 4. Hyperlipidemia Hyperlipidemia is managed with atorvastatin, and the patient continues to take her medications as prescribed. 6. Hypothyroidism The patient has hypothyroidism, for which she is taking levothyroxine. 7. Osteoarthritis The patient has osteoarthritis, which affects her fingers, causing occasional discomfort. During the visit, we discussed the patient's prediabetic status and the importance of monitoring glucose levels, especially given her dietary habits. We also reviewed her recent subconjunctival hemorrhage, likely exacerbated by Eliquis, and confirmed that her follow-up with the pattern layout worker showed no complications. Her chronic kidney disease was addressed, with reassurance provided regarding her current kidney function tests. Orders: Orders AMB Hemoglobin A1c Today Z13.9 - Encounter for screening, unspecified Medications: Discontinued guaifenesin ER (Mucinex) Discontinued Reason: Doctor's Order 600 mg PO BID 20 tabs 0RF Patient Instructions: - Monitor blood sugar levels regularly and reduce sugar intake. - Follow up with the pattern layout worker as needed for any vision changes. - Continue taking prescribed medications as directed.
== END 2024-11-23 11:38 | disposition home or self-care (01) ==
LOC: HO.HMCSH 10:55
PROVIDERS: PCP Internal Medicine; Visit Provider Physician Assistant Medical
DX: R73.03 Prediabetes (principal); H11.31 Conjunctival hemorrhage, right eye; I10 Essential (primary) hypertension; E78.5 Hyperlipidemia, unspecified; E03.9 Hypothyroidism, unspecified; M19.90 Unspecified osteoarthritis, unspecified site; Z13.9 Encounter for screening, unspecified

== ENCOUNTER → 2024-11-23 10:55 | Outpatient (BNVA) | payer MEDICARE, SELFPAY | PROVIDERS: PCP Internal Medicine; Visit Provider Physician Assistant Medical | DX: R73.03 Prediabetes (principal); I10 Essential (primary) hypertension; E78.5 Hyperlipidemia, unspecified; E03.9 Hypothyroidism, unspecified; M19.042 Primary osteoarthritis, left hand; M19.041 Primary osteoarthritis, right hand; H11.31 Conjunctival hemorrhage, right eye | CPT/HCPCS: 83036; 96127; 99212 ==